=== PATIENT | female | born 1985 | race Caucasian/White ===

== ENCOUNTER 2020-04-30 07:00 | Outpatient (RCR) | payer OTHER, SELFPAY | END 2020-04-30 08:02 | disposition other institution (70) | LOC: HO.PT 07:00 | PROVIDERS: PCP Family Medicine; Visit Provider Family Medicine | DX: M25.561 Pain in right knee (principal) | CPT/HCPCS: 97110; 97112; 97140; 97162; 97530 ==

== ENCOUNTER 2020-06-21 12:17 | Outpatient (REF) | payer OTHER, SELFPAY | END 2020-06-21 12:18 | disposition home or self-care (01) | LOC: HO.LAB 12:17 | PROVIDERS: Visit Provider Internal Medicine | DX: Z20.822 Contact with and (suspected) exposure to COVID-19 (principal) | CPT/HCPCS: 36415; C9803; U0003 ==

== ENCOUNTER 2020-07-01 13:30 | Outpatient (REF) | payer OTHER, SELFPAY | END 2020-07-01 13:31 | disposition home or self-care (01) | LOC: HO.LAB 13:30 | PROVIDERS: Visit Provider Internal Medicine | DX: Z20.822 Contact with and (suspected) exposure to COVID-19 (principal) | CPT/HCPCS: 36415; C9803; U0003; U0005 ==

== ENCOUNTER 2021-04-12 15:02 | Emergency (ER) | payer OTHER, SELFPAY ==
[2021-04-12 15:41] VITALS: BP 129/78; PULSE 68; RESP 18; TEMP 37.3; O2SAT 98; BMI 28.7
[2021-04-12 16:37] LABS: COVID-19 Test Negative (Negative); IDNOW Serial# 08D9AD1C
--- NOTE | 2021-04-12 16:51 | ED_ITS ---
HPI - General Adult General Chief complaint: General Medical Stated complaint: Covid symptoms Time Seen by Provider: 04/12/21 16:51 History of Present Illness HPI narrative: Patient complains of mid nasal congestion and runny nose for several days and feels like she has a decreased sense of smell No cough no difficulty breathing Related Data Previous Rx's Medication Instructions Recorded oxymetazoline 0.05 % nasal spray 2 spray INTRANASAL Q12H PRN 5 Days 04/12/21 #15 ml Allergies Allergy/AdvReac Type Severity Reaction Status Date / Time No Known Allergies Allergy Unverified 02/08/20 17:37 [No Known Allergies*] Review of Systems Review of Systems: Positive for runny nose nasal congestion Negatives are no fever no chills no dizziness no weakness no headache no neck pain no sore throat no sputum no shortness of breath no chest pain no abdominal pain no nausea vomiting or diarrhea Yes all other systems are reviewed and are negative [facility] Past Medical History Source: nursing notes reviewed Social History Social History Advance Directives: No Advance Directives Information Provided: No Patient : No Physical Exam Vital Signs: Vital Signs: Last Vital Signs Temp 99.1 F 04/12/21 15:41 Pulse 68 04/12/21 15:41 Resp 18 04/12/21 15:41 BP 129/78 04/12/21 15:41 Pulse Ox 98 04/12/21 15:41 Body Mass Index 28.7 General appearance no acute distress The sinuses are nontender but congested The neck is supple Respiratory no distress Chest clear to auscultation bilateral Extremities full range of motion x4 Skin no rash Course Course Course Narrative: Well-appearing patient with negative COVID test is discharged Medical Decision Making Lab Data Labs: Lab Results 04/12/21 Range/Units 16:10 COVID-19 (GAGAN) Negative (Negative) COVID-19 Clin Com See Note Discharge Plan Discharge Clinical Impression: Acute viral syndrome Patient Disposition: Home, Self-Care Additional Instructions: COVID test was negative but with the loss of his sense of smell there is still a possibility you have COVID so would be a good idea to get retested for confirmation before returning to work You can use cldm-ovz-lsxcvun decongestant for about a week the nose spray is called oxymetazoline, it is the generic for Afrin 12 hour spray and you could use 2 or 3 sprays in each nostril every 12 hours as needed for congestion Return to ER any time any worse condition or any concerns Prescriptions: New oxymetazoline 0.05 % spray,non-aerosol 2 spray intranasal Q12H PRN (Reason: nasal congestion) 5 Days Qty: 15 RF: 0
== END 2021-04-12 17:09 | disposition home or self-care (01) ==
PROVIDERS: Emergency Provider Emergency Medicine Emergency Medical Services; PCP Family Medicine
DX: B34.9 Viral infection, unspecified (principal); Z20.822 Contact with and (suspected) exposure to COVID-19
CPT/HCPCS: 36415; 87635; 99283

== ENCOUNTER 2022-01-01 21:53 | Emergency (ER) | payer OTHER, SELFPAY ==
[2022-01-01 22:27] VITALS: BP 130/81; PULSE 90; RESP 16; TEMP 37.6; O2SAT 98; BMI 28.2
[2022-01-01 22:49] LABS: COVID-19 Test Positive (Negative); IDNOW Serial# 55D5AD1C
[2022-01-02] VITALS: BP 121/69; PULSE 76; RESP 18; TEMP 37.4; O2SAT 99
[2022-01-02 04:41] VITALS: BP 130/80; PULSE 66; RESP 16; O2SAT 100
[2022-01-02 07:56] VITALS: BP 132/83; PULSE 72; RESP 18; O2SAT 100
[2022-01-02] MEDS: Ibuprofen 400 MG TABLET PO (07:59)
[2022-01-02] MEDS: Acetaminophen 325 MG TABLET 975 MG PO (07:59)
--- NOTE | 2022-01-02 08:21 | ED_ITS ---
HPI - General Adult General Chief complaint: General Medical Stated complaint: +covid Time Seen by Provider: 01/02/22 07:27 Source: patient Mode of arrival: ambulatory History of Present Illness HPI narrative: 36-year-old female who [place] noted that he will were not wearing her mask but she was wearing her as and then when she got home she began having a couple of days of congestion then began began experiencing back discomfort and took a home COVID test last night which showed that it was positive. Patient states she has also had some abdominal discomfort with urinary pain and burning. Otherwise, she denies sore throat, cough, headache. Related Data Previous Rx's Medication Instructions Recorded oxymetazoline 0.05 % nasal spray 2 spray intranasal Q12H PRN nasal 04/12/21 congestion 5 days #15 mL nitrofurantoin 100 mg PO Q12H 5 days #10 caps 01/02/22 monohydrate/macrocrystals 100 mg capsule (Macrobid) Allergies Allergy/AdvReac Type Severity Reaction Status Date / Time No Known Allergies Allergy Unverified 02/08/20 17:37 [No Known Allergies*] Review of Systems Review of Systems: Pertinent positives and negatives as stated in HPI 10 point review of systems otherwise negative. PMFSH Past Medical History Source: nursing notes reviewed Medical History Diabetes Fibromyalgia PCOS (polycystic ovarian syndrome) Pituitary mass Social History Social History Patient Tobacco Use Status: Never used Tobacco Use of substances other than those prescribed or required for medical reasons: No Advance Directives: Yes Advance Directives Information Provided: Yes Advance Directives on File: No Physical Exam ED Vital Signs: Vital Signs - 24 hr 01/01/22 22:27 01/02/22 00:00 01/02/22 04:41 Temperature 99.6 F 99.4 F Pulse Rate 90 76 66 Respiratory Rate 16 18 16 Blood Pressure 130/81 121/69 130/80 Pulse Oximetry 98 99 100 Oxygen Delivery Method Room Air Room Air Room Air 01/02/22 07:56 Temperature Pulse Rate 72 Respiratory Rate 18 Blood Pressure 132/83 Pulse Oximetry 100 Oxygen Delivery Method Room Air BMI result Body Mass Index 28.2 VITAL SIGNS: Reviewed. GENERAL: Well developed, well nourished, in no acute distress. HEAD: Normocephalic/atraumatic EYES: PERRLA, EOMI EARS: Ext canals without abnormality, TMs non-bulging and non-erythematous NOSE: Nares patent bilateral OROPHARYNX: no oral lesions noted, posterior pharynx clear and non-erythematous without noted tonsillar enlargement/erythema/exudates NECK: Supple, no adenopathy LUNGS: Normal breath sounds. No adventitious sounds or accessory muscle use. SpO2<98> CARDIOVASCULAR: Regular rate and rhythm without noted murmurs ABDOMEN: Soft, mild tenderness on palpation but no rebound, non-distended with bowel sounds. MUSCULOSKELETAL: No tenderness, deformities, or effusions noted on gross inspection. EXTREMITIES: No cyanosis, clubbing or edema. SKIN: Inspection of the skin reveals no rashes NEUROLOGIC: Alert and oriented x 4. Strength and sensation to light touch were grossly intact x 4. Course Course Course Narrative: 36-year-old female with history and presentation most consistent with viral syndrome and on review of investigations she is noted to be COVID-19 positive and will evaluate for possibility of UTI but doubt intra-abdominal pathologies as patient is not febrile nor she tachypneic or tachycardic. Patient was provided with combination analgesics. Review of urinalysis demonstrates UTI, and on re-evaluation patient is had reduction in her pain level and will be discharged home in stable condition after receiving initial antibiotics here in the emergency room. Medical Decision Making Lab Data Labs: Lab Results 01/01/22 01/02/22 01/02/22 Range/Units 22:34 08:21 08:21 Urine Color STRAW Urine Appearance CLEAR Urine pH 6.0 (5.0-8.0) Ur Specific [place] <= 1.005 (1.005-1.025) Urine Protein NEG (NEG-TRACE) MG/DL Urine Glucose (UA) NEG (NEG) MG/DL Urine Ketones NEG (NEG) MG/DL Urine Blood 3+ H (NEG) Urine Nitrite NEG (NEG) Ur Leukocyte Esterase 2+ H (NEG) Urine RBC 10-14 H (0) /HPF Urine WBC 10-14 H (0-4) /HPF Ur Squamous Epith Cells 1+ /LPF Urine Bacteria NONE /LPF Urine Test NEGATIVE (NEGATIVE) COVID-19 (GAGAN) Positive A (Negative) COVID-19 Clin Com See Note Discharge Plan Discharge Clinical Impression: Viral syndrome, Lab test positive for detection of COVID-19 virus, UTI (urinary tract infection) Patient Disposition: Home, Self-Care Instructions: Urinary Tract Infection in Women (ED), Viral Syndrome (ED), COVID-19 (Coronavirus Disease 2019) (ED) Additional Instructions: 1. You have been diagnosed with COVID-19 today and will need to isolate for 5 days and then follow all [place] and Federal guidelines regarding COVID-19 positive and exposure to other people as well as return to work. 2. Recommend [id number] Tylenol/ibuprofen as needed for headaches, body aches, fevers greater than 100.4 and continue to stay well hydrated with plenty of water. 3. You have been diagnosed with the UTI, you have received initial antibiotics and the remaining course has been sent to your pharmacy. You should complete the entire course of antibiotics 4. Follow-up with your primary care provider in the next few days via telemedi cine appointment. Return to the ER for worsening symptoms. Prescriptions: New nitrofurantoin monohyd/m-cryst [Macrobid] 100 mg capsule 100 mg PO Q12H 5 Days Qty: 10 0RF Rx Instructions: must administer with a meal/food No Action oxymetazoline 0.05 % spray,non-aerosol 2 spray intranasal Q12H PRN (Reason: nasal congestion) 5 Days Qty: 15 0RF Stand Alone Forms: Work/School Release
[2022-01-02 08:38] LABS: Appearance Urine CLEAR; Color Urine STRAW; Glucose Urine UA NEG (NEG); Leukocyte Esterase Urine 2+ (NEG); Nitrite Urine NEG (NEG); Specific Gravity - Urine <= 1.005 (1.005-1.025); UACC Culture Trigger YES; Urine Blood 3+ (NEG); Urine Ketones NEG (NEG); Urine Protein NEG (NEG-TRACE)
[2022-01-02 08:42] LABS: UPreg QC Valid YES; Urine Pregnancy NEGATIVE (NEGATIVE)
[2022-01-02 08:55] LABS: Squamous Epithelial Cell Urine 1+ /LPF
[2022-01-02] MEDS: Nitrofurantoin Monohyd/M-Cryst 100 MG CAPSULE PO (09:25)
[2022-01-02 09:33] LABS: Glucose, Whole Blood 109 mg/dL (60-115)
== END 2022-01-02 09:32 | disposition home or self-care (01) ==
PROVIDERS: Emergency Provider Student in an Organized Health Care Education/Training Program
DX: U07.1 COVID-19 (principal); B34.9 Viral infection, unspecified; N39.0 Urinary tract infection, site not specified; B95.7 Other staphylococcus as the cause of diseases classified elsewhere; E11.9 Type 2 diabetes mellitus without complications
CPT/HCPCS: 81001; 81025; 82947; 87086; 87088; 87186; 87635; 99283; 99284

== ENCOUNTER 2023-04-08 08:58 | Outpatient (REF) | payer OTHER, SELFPAY ==
[2023-04-08 11:23] LABS: Estimated Average Glucose 171 mg/dL; Hemoglobin A1c % 7.6 % (<6.0)
[2023-04-08 11:39] LABS: Alanine Aminotransferase 18 U/L (0-31); Alkaline Phosphatase 85 U/L (39-117); Anion Gap 11 (12-20); Aspartate Amino Transferase 17 U/L (5-31); Bilirubin Direct 0.2 mg/dL (0.0-0.5); Bilirubin Total 0.7 mg/dL (0.0-1.0); Blood Urea Nitrogen 7 mg/dL (9-16); Calcium 8.8 mg/dL (8.4-10.2); Carbon Dioxide 24 mmol/L (22-29); Chloride 106 mmol/L (96-108); Cholesterol 143 mg/dL (<200); Estimated Glomerular Filt Rate > 60; Glucose Random 198 mg/dL (60-115); HDL Cholesterol 40 mg/dL (>40); LDL Cholesterol Calculated 80 mg/dL (<100); Sodium 137 mmol/L (135-145); Total Protein 7.3 g/dL (6.5-8.0); Triglycerides 115 mg/dL (<150)
[2023-04-08 11:55] LABS: ~HepC Num1 2.62 S/CO (0.00-0.79); ~Hepatitis C Antibody Reactive (Nonreactive)
[2023-04-08 11:59] LABS: Vitamin D 25-OH Total 18.7 ng/mL (>30)
[2023-04-08 12:04] LABS: Microalbum/Creatinine Ratio Ur 5.6 ug/mg cr (<30)
[2023-04-12 12:38] LABS: HCV Log PCR <1.18 NOT DETECTED Log IU/mL (NOT DETECTED); HepC Viral Load <15 NOT DETECTED IU/mL (NOT DETECTED)
== END 2023-04-08 08:59 | disposition home or self-care (01) ==
LOC: HO.HHCL 08:58
PROVIDERS: Visit Provider Family Medicine
DX: E11.9 Type 2 diabetes mellitus without complications (principal); E55.9 Vitamin D deficiency, unspecified; Z11.59 Encounter for screening for other viral diseases
CPT/HCPCS: 36415; 80048; 80061; 80076; 82043; 82306; 82570; 83036; 86803; 87522

== ENCOUNTER 2023-04-09 12:38 | Outpatient (REF) | payer OTHER, SELFPAY ==
[2023-04-09 16:21] LABS: CT PCR NOT DETECTED (Not Detect.); NG PCR NOT DETECTED (Not Detect.)
[2023-04-10 03:36] LABS: HIV AB/AG Nonreactive (Nonreactive); HIV Num 1 0.05 S/CO (0.00-0.99)
[2023-04-12 12:38] LABS: HCV Log PCR <1.18 NOT DETECTED Log IU/mL (NOT DETECTED); HepC Viral Load <15 NOT DETECTED IU/mL (NOT DETECTED)
[2023-04-17 08:03] LABS: HPV 16 RNA NOT DETECTED (NOT DETECTED); HPV mRNA E6/E7 rflx Detected (Not Detected)
== END 2023-04-09 12:39 | disposition home or self-care (01) ==
LOC: HO.HHCL 12:38
PROVIDERS: Visit Provider Family Medicine
DX: Z12.4 Encounter for screening for malignant neoplasm of cervix (principal); Z11.51 Encounter for screening for human papillomavirus (HPV); R76.8 Other specified abnormal immunological findings in serum; Z20.2 Contact with and (suspected) exposure to infections with a predominantly sexual mode of transmission
CPT/HCPCS: 0353U; 36415; 87389; 87522; 87624; 87625; 88142

== ENCOUNTER 2023-06-07 07:29 | Outpatient (REF) | payer OTHER, SELFPAY | END 2023-06-07 07:30 | disposition home or self-care (01) | LOC: HO.LAB 07:29 | PROVIDERS: Visit Provider Obstetrics & Gynecology | DX: R87.810 Cervical high risk human papillomavirus (HPV) DNA test positive (principal); R87.610 Atypical squamous cells of undetermined significance on cytologic smear of cervix (ASC-US) | CPT/HCPCS: 57454; 81025; 88305 ==

== ENCOUNTER 2023-06-07 07:29 | Outpatient (AMB) | payer OTHER, SELFPAY ==
--- NOTE | 2023-06-07 07:50 | A.OFFVIS_ITS ---
Intake Vital Signs 06/07/23 07:53 Height 5 ft 6 in BP 112/70 Intake Visit Reasons: Ascus,HPV +/PCP Referral Application Integration Specialist: Application Integration Specialist Present (Shannan) Allergies No Known Allergies [No Known Allergies*] Allergy (Verified 06/07/23 07:50) Is last menstrual period known: Yes Last menstrual period: 05/29/23 HPI HPI Comments History of Present Illness Details Presenting referred from the patient's PCP regarding abnormal Pap smear showing ascus/HPV E6/E7 positive [facility] Medical History Pituitary mass PCOS (polycystic ovarian syndrome) Fibromyalgia Diabetes Social History Patient Tobacco Use Status: Never used Tobacco Female Reproductive History Menstrual Date of last menstrual period: 05/29/23 Review of Systems Const All systems reviewed & are unremarkable except as noted in HPI and below Physical Exam Vital Signs: Last Vital Signs BP 112/70 06/07/23 07:53 General: Yes no CVA tenderness External Female Exam: normal external appearance and normal appearance of the urethra Speculum Exam - Vagina: normal appearance of the vagina, normal palpation, no lesions and no masses Speculum Exam - Cervix: normal appearance of the cervix, normal palpation, no lesions, no masses and nontender Bimanual exam- vagina & uterus: normal bimanual exam, normal palpation, uterine size normal, normal palpation, uterine shape normal, No Cervical tenderness present and non-tender Bimanual Exam- Adnexa, other: normal adnexae Back/Spine/Pelvis Back: no CVA tenderness Office Procedures Colposcopy Before the procedure was started discussed with the patient the procedure, alternatives & all the risks associated with the procedure (bleeding, infection, injury to vagina, bladder, vessels, possible need for transfusion with all its risks) then patient signed the consent Pap smear = ascus/HPV positive Urine test done in the office was negative Speculum inserted, acetic acid used Colposcopy done Transformation zone seen, acetowhite lesions identified at 11+2+3+5 o?clock, cervical biopsies taken from 11+2+3+5 o?clock, ECC done afterwards. Vaginoscopy of the upper vagina showed no evidence of any aceto-white lesions Monsel solution used for hemostasis. The patient tolerated well . At the end the patient was instructed to call if temp>100.4, abdominal pain, n/v, bleeding; The patient was given the following instructions: nothing per vagina, no intercourse or bath tub use. All questions answered the patient verbalized understanding. Instructed the patient to make an appointment in 2 weeks for follow-up This note was generated with a voice recognition program. Some errors may have been overlooked during the review of this note. Sometimes these errors may affect the content or meaning of a given sentence. 29135-Meapxtzqi of cervix including upper vagina with biopsy and ECC Procedure code (CPT) selection complete Results AMB Test Urine AMB Test Urine Negative Last Edit by EFFIE Gonzalez on 06/07/23 07:55 Results Reviewed Results Reviewed: Laboratory Last Values Tst Clinic Negative 06/07/23 07:55 Assessment & Plan Assessment & Plan (1) ASCUS with positive high risk HPV cervical: Code(s): R87.610 - Atypical squamous cells of undetermined significance on cytologic smear of cervix (ASC-US); R87.810 - Cervical high risk human papillomavirus (HPV) DNA test positive Plan: Discussed with the patient the result of her abnormal pap, its significance, risk of progression, persistence, and regression if untreated. the false positive/negative rate being a screening test, the indication for diagnostic test -colposcopy, biopsy, endocervical curettage. Colpo/biopsy/ ECC done, see procedure note. The patient verbalized understanding and agreed with the plan, all questions answered. Orders: Orders AMB HCG Urine Test Today Z32.02 - Encounter for test, result negative AMB Colposcopy Today R87.610 - Atypical squamous cells of undetermined significance on cytologic smear of cervix (ASC-US), R87.810 - Cervical high risk human papillomavirus (HPV) DNA test positive Coding Level of Care Code Procedure Only Diagnoses ASCUS with positive high risk HPV cervical R87.610; R87.810 CPT Codes Colposcopy - CPT: 95038-Rwbmcmgdg of cervix including upper vagina with biopsy and ECC ([id number])
[2023-06-07 07:53] VITALS: BP 112/70
== END 2023-06-07 08:23 | disposition home or self-care (01) ==
PROVIDERS: Visit Provider Obstetrics & Gynecology
DX: R87.610 Atypical squamous cells of undetermined significance on cytologic smear of cervix (ASC-US) (principal); R87.810 Cervical high risk human papillomavirus (HPV) DNA test positive; Z32.02 Encounter for pregnancy test, result negative
CPT/HCPCS: 57454

== ENCOUNTER 2023-06-22 07:48 | Outpatient (AMB) | payer OTHER, SELFPAY ==
--- NOTE | 2023-06-22 07:53 | MHC.OFFVIS ---
Intake Vital Signs 06/22/23 07:56 Height 5 ft 6 in Weight 196 lb BMI 31.6 BP 120/78 Intake Visit Reasons: Colpo Results Mold Stamper And Repairer Required: Yes Mold Stamper And Repairer Language: Server Administrator Name: Lucretia CHOU Information Interpreted: non-clinical & clinical Accompanied by: Self / Same As Patient Allergies No Known Allergies [No Known Allergies*] Allergy (Verified 06/22/23 07:57) HPI HPI Comments History of Present Illness Details Presenting post colpo for follow-up. The patient is doing well with no complaints. The pathology showed the following: A. Cervix, 2 o'clock, biopsy: Mildly inflamed squamous mucosa with reactive changes; no endocervical epithelium identified. B. Cervix, 3 o'clock, biopsy: Mildly inflamed squamous and endocervical mucosa with reactive changes; mucoinflammatory material. C. Cervix, 5 o'clock, biopsy: Mildly inflamed squamous mucosa with reactive changes; no endocervical epithelium identified. D. Cervix, 11 o'clock, biopsy: Inflamed cervical transformation zone mucosa with reactive changes. E. Endocervix, curettage: Superficial fragments of endocervical epithelium within normal limits PFSH Medical History Pituitary mass PCOS (polycystic ovarian syndrome) Fibromyalgia Diabetes Social History Patient Tobacco Use Status: Never used Tobacco Review of Systems Const All systems reviewed & are unremarkable except as noted in HPI and below Reports as per HPI and Reports no additional complaints GI Reports no additional complaints Reports no additional complaints Assessment & Plan Assessment & Plan (1) ASCUS with positive high risk HPV cervical: Code(s): R87.610 - Atypical squamous cells of undetermined significance on cytologic smear of cervix (ASC-US); R87.810 - Cervical high risk human papillomavirus (HPV) DNA test positive Plan: Discussed with the patient the pathology results of the colposcopy biopsies & endocervical curettage ( negative). Discussed with the patient the sensitivity specificity, positive and negative predictive value in detecting cervical cancer in addition discussed the regression, persistence and progression rates. Recommended co-testing in 12 months, if cytology and or HPV are abnormal will proceed was colposcopy biopsy and endocervical curettage. Instructions given to the patient to schedule a co test appointment in 1 year. All questions answered the patient verbalized understanding. Coding Level of Care Code Est Pt Level 3 (08781) Diagnoses ASCUS with positive high risk HPV cervical R87.610; R87.810
[2023-06-22 07:56] VITALS: BP 120/78; BMI 31.6
== END 2023-06-22 08:41 | disposition home or self-care (01) ==
PROVIDERS: Visit Provider Obstetrics & Gynecology
DX: R87.610 Atypical squamous cells of undetermined significance on cytologic smear of cervix (ASC-US) (principal); R87.810 Cervical high risk human papillomavirus (HPV) DNA test positive
CPT/HCPCS: 99213

== ENCOUNTER → 2023-06-22 07:48 | Outpatient (BNVA) | payer OTHER, SELFPAY | PROVIDERS: Visit Provider Obstetrics & Gynecology ==

== ENCOUNTER 2023-07-23 08:06 | Outpatient (REF) | payer OTHER, SELFPAY ==
--- NOTE | ~2023-07-23 | XR_ITS ---
EXAMINATION: XR KNEE, LEFT CLINICAL INFORMATION: Bilateral knee pain. COMPARISON: None. TECHNIQUE: Three views of the left knee. FINDINGS: No fracture or joint effusion appreciated. Alignment is anatomic. Joint spaces appear maintained. No abnormal soft tissue calcification. XR/XR knee LT 3V IMPRESSION: Unremarkable plain film examination of the left knee.
--- NOTE | ~2023-07-23 | XR_ITS ---
EXAMINATION: XR KNEE, RIGHT CLINICAL INFORMATION: Bilateral knee pain. COMPARISON: February 02, 2020 TECHNIQUE: Three views of the right knee. FINDINGS: No fracture or joint effusion appreciated. Alignment is anatomic. Joint spaces appear maintained. No abnormal soft tissue calcification. XR/XR knee RT 3V IMPRESSION: Unremarkable plain film examination of the right knee.
== END 2023-07-23 08:07 | disposition home or self-care (01) ==
LOC: HO.XRAY 08:06
PROVIDERS: PCP Family Medicine; Visit Provider Family Medicine
DX: M25.561 Pain in right knee (principal); M25.562 Pain in left knee; G89.29 Other chronic pain
CPT/HCPCS: 73562

== ENCOUNTER 2023-08-18 07:00 | Outpatient (RCR) | payer OTHER, SELFPAY | END 2023-09-24 07:55 | disposition home or self-care (01) | LOC: HO.PT 07:00 | PROVIDERS: PCP Family Medicine; Visit Provider Family Medicine | DX: M25.561 Pain in right knee (principal); M25.562 Pain in left knee | CPT/HCPCS: 97110; 97162; 97530 ==

== ENCOUNTER 2024-06-09 09:02 | Outpatient (REF) | payer OTHER, SELFPAY ==
[2024-06-09 11:33] LABS: MANUAL DIFF FLAG NO
[2024-06-09 11:39] LABS: Basophils Percent Auto 0.4 % (0-2); Eosinophils Absolute Auto 0.1 X10*3/uL (0.0-0.4); Eosinophils Percent Auto 1.2 % (0-4); Hematocrit 38.2 % (37.0-47.0); Hemoglobin 12.5 g/dl (12.0-16.0); Imm Gran Abs Auto 0.03 X10*3/uL (0.00-0.03); Imm Gran Pct Auto 0.3 % (0.0-0.4); Lymphocytes Absolute Auto 1.9 X10*3/uL (1.2-4.9); Lymphocytes Percent Auto 21.1 % (20-40); Mean Corpuscular HGB Conc 32.7 g/dl (31.0-35.0); Mean Corpuscular Hemoglobin 27.3 pg (27.0-33.0); Mean Corpuscular Volume 83.4 fL (80.0-98.0); Mean Platelet Volume 10.4 fL (9.4-12.3); Monocytes Absolute Auto 0.6 X10*3/uL (0.1-1.2); Monocytes Percent Auto 6.4 % (2-11); Neutrophils Absolute Auto 6.3 x10*3/uL (2.0-8.3); Neutrophils Percent Auto 70.6 % (45-73); Platelet Count 316 X10*3/uL (160-400); Red Blood Count 4.58 X10*6/uL (4.20-5.50); Red Cell Distribution Width 12.7 % (11.0-16.0); White Blood Count 8.9 X10*3/uL (4.8-10.8)
[2024-06-09 11:48] LABS: Estimated Average Glucose 131 mg/dL; Hemoglobin A1C 146.1457 umol/L; Hemoglobin A1c % 6.2 % (<6.0); Total Hemoglobin (HGBA1C) 3282.2372 umol/L
[2024-06-09 11:56] LABS: Creatinine Urine 130.39 mg/dL; Microalbumin Urine < 5.0 mg/L
[2024-06-09 12:14] LABS: Alanine Aminotransferase 16 U/L (0-31); Alkaline Phosphatase 88 U/L (39-117); Anion Gap 9 (12-20); Aspartate Amino Transferase 17 U/L (5-31); Bilirubin Direct 0.2 mg/dL (0.0-0.5); Bilirubin Total 0.7 mg/dL (0.0-1.0); Blood Urea Nitrogen 12 mg/dL (9-16); Calcium 8.9 mg/dL (8.4-10.2); Carbon Dioxide 25 mmol/L (22-29); Chloride 107 mmol/L (96-108); Cholesterol 133 mg/dL (<200); Estimated Glomerular Filt Rate > 60; Glucose Random 148 mg/dL (60-115); HDL Cholesterol 38 mg/dL (>40); LDL Cholesterol Calculated 76 mg/dL (<100); Potassium 3.8 mmol/L (3.3-5.1); Sodium 137 mmol/L (135-145); Total Protein 7.3 g/dL (6.5-8.0); Triglycerides 98 mg/dL (<150)
== END 2024-06-09 09:03 | disposition home or self-care (01) ==
LOC: HO.HHCL 09:02
PROVIDERS: Visit Provider Family Medicine
DX: E11.9 Type 2 diabetes mellitus without complications (principal)
CPT/HCPCS: 36415; 80048; 80061; 80076; 82570; 83036; 85025

== ENCOUNTER 2024-06-13 08:00 | Outpatient (AMB) | payer OTHER, SELFPAY ==
--- NOTE | 2024-06-13 08:04 | MHC.OFFVIS ---
Vital Signs 06/13/24 08:07 Height 5 ft 6 in Weight 186 lb BMI 30.0 Intake Visit Reasons: Bilateral knee pains and giving way Intake Note: Bren is a 39 year old female who presents with complaints of progressively worsening bilateral knee pains and giving way, right greater than left. She describes her pains as sharp in nature. Most of the pain is along the anterior and medial aspects of her right knee. She states that her right knee will give out several times per day. Her symptoms have gotten worse over the last 2 years in spite of continued non operative treatments. She has been to formal physical therapy which gave her no relief. She has also tried Tylenol and anti-inflammatory medicines which gave her only mild relief. She has failed the last 6 weeks of conservative treatment which has included physical therapy, Tylenol, and anti-inflammatory medicines. Javascript Developer Required: Yes Javascript Developer Language: Manager Sign Name: GregoryEFFIE rodarte/OLIMPIA Allergies No Known Allergies [No Known Allergies*] Allergy (Verified 06/13/24 08:07) Medication List - Last Reconciled 06/13/24 by Timoteo Ramirez MD cabergoline 0.5 mg PO 2XW empagliflozin (Jardiance) 10 mg PO DAILY glipizide ER 5 mg PO DAILY loratadine 10 mg PO QAM [facility] Medical History (Updated 06/13/24 @ 08:19 by Timoteo Ramirez MD) Chronic back pain Pituitary mass PCOS (polycystic ovarian syndrome) Fibromyalgia Diabetes Social History Patient Tobacco Use Status: Never used Tobacco Physical Exam Vital Signs: BMI result Body Mass Index 30.0 Const Other: Well-nourished well-developed very friendly female awake alert and oriented x3 in no acute distress Extrem Other: Bilateral lower extremity examination shows good capillary refill, no skin lesions noted, normal sensation light touch Bilateral knee examination shows minimal effusions, minimal crepitus with range of motion, tenderness along her medial joint lines, positive Estefani's test, no instability Results Reviewed Results Reviewed: Standing full weight-bearing x-rays of the patient's bilateral knee show mild diffuse joint space narrowing, no acute bony abnormalities Assessment & Plan Assessment & Plan (1) Tear of medial meniscus of right knee: Code(s): S83.241A - Other tear of medial meniscus, current injury, right knee, initial encounter Category: Medical Plan Ms. Milli Ferrera presents with progressively worsening right knee pain and mechanical symptoms most likely due to a medial meniscus tear. Thus, I will send the patient for an MRI of her right knee for further evaluation. I will see her back once the MRI is completed to discuss the findings and treatment options. Feel free to call me at any time should questions regarding her orthopedic management arise. Thank you very much for asking me to see this very friendly patient. I spent 20 minutes in reviewing the patient's records and imaging studies, seeing the patient and documenting in the medical record. Orders: Orders MR knee RT wo con Today S83.241A - Other tear of medial meniscus, current injury, right knee, initial encounter Coding Level of Care Code New Pt Level 3 (28105) Complex EM visit Add On G2211 Diagnoses Tear of medial meniscus of right knee S83.241A
== END 2024-06-13 08:17 | disposition home or self-care (01) ==
PROVIDERS: PCP Family Medicine; Visit Provider Orthopaedic Surgery
DX: S83.241A Other tear of medial meniscus, current injury, right knee, initial encounter (principal)
CPT/HCPCS: 99203

== ENCOUNTER 2024-06-27 07:33 | Outpatient (REF) | payer OTHER, SELFPAY ==
--- OUTSIDE RECORDS SUMMARY | 2024-06-27 08:11 | XMS_ITS | Encounter Summary ---
Author Organization [employer] [facility] Address [address] [place] [address] [address] [place] [address] Care Team Providers Care Physical Therapist Name Role Phone Heidy Daley MD Primary Care Provider [phone]- [phone] Timoteo Ramirez MD Unavailable Encounter Details Date Type Department Care Team (Latest Contact Info) Description 02/07/2019 Abstract C CONVERSIONS Dental, Provider, DDS Social History Tobacco Use Types Packs/Day Years Used Date Smoking Tobacco: Never Assessed Comments Unknown Sex and Gender Information Value Date Recorded Sex Assigned at Female 03/23/2022 10:20 AM EDT Legal Sex Female 10:20 AM EDT Gender Identity Female 03/23/2022 10:20 AM EDT Sexual Orientation Straight 03/23/2022 10 :20 AM EDT documented as of this encounter Plan of Treatment Not on file documented as of this encounter Visit Diagnoses Not on filedocumented in this encounter Care Teams Physical Therapist Relationship Specialty Start Date End Date Heidy Daley MD [address] [place] [id number] PCP - General Family Medicine 05/24/18 Timoteo Ramirez MD [address] [place] [id number] Orthopaedic Surgery 06/13/24 Heidy Conklin, JaceyD Endocrinology 04/19/24 documented as of this encounter
--- OUTSIDE RECORDS SUMMARY | 2024-06-27 08:11 | XMS_ITS | Encounter Summary ---
Author Organization [employer] Address [address] [place] [address] Care Team Providers Care Senior Account Clerk Name Role Phone Heidy Daley MD Primary Care Provider [phone]- [phone] Timoteo Ramirez MD Unavailable Reason for Visit * Reason Onset Date Comments Referral 08/18/2022 Encounter Details Date Type Department Care Team (Late st Contact Info) Description 08/18/2022 Telephone [facility] [address] [place] [address] Heidy Daley MD [address] [place] [address] Referral Social History Tobacco Use Types Packs/Day Years Used Date Smoking Tobacco: Never Assessed Comments Unknown Sex and Gender Information Value Date Recorded Sex Assigned at Female 03/23/2022 10:20 AM EDT Legal Sex Female 10:20 AM EDT Gender Identity Female 03/23/2022 10:20 AM EDT Sexual Orientation Straight 03/23/2022 10 :20 AM EDT documented as of this encounter Miscellaneous Notes * Telephone Encounter - Keith Victor - 08/18/2022 4:05 PM EDT Tc from pt requesting a referral Endocrinology. Pt states that she was referred to [facility] and arons not had an appt with them for months now. Please contact pt at [phone] documented in this encounter Plan of Treatment Not on file documented as of this encounter Visit Diagnoses Not on filedocumented in this encounter Care Teams Senior Account Clerk Relationship Specialty Start Date End Date [place], [place] Heidy [address] [place] [id number] PCP - General Family Medicine 05/24/18 Timoteo Ramirez MD [address] [place] [address] [place] [id number] Orthopaedic Surgery 06/13/24 Heidy Conklin, PharmD Endocrinology 04/19/24 documented as of this encounter
--- OUTSIDE RECORDS SUMMARY | 2024-06-27 08:11 | XMS_ITS | Encounter Summary ---
Author Organization [employer] Address [address] [place] [address] Care Team Providers Care Capacitor Tester Name Role Phone Heidy Daley MD Primary Care Provider [phone]- [phone] Timoteo Ramirez MD Unavailable Encounter Details Date Type Department Care Team ([facility] st Contact Info) Description 04/22/2023 Orders Only [facility] MEDICINE [address] [place], [place] [id number] Heidy Daley MD [address] [place] [address] Atypical squamous cells of undetermined significance on cytologic smear of cervix (ASC-US) (Primary Dx) Social History Tobacco Use Types Packs/Day Years Used Date Smoking Tobacco: Never Smokeless Tobacco: Never Alcohol Use Standard Drinks/Week Comments Never 0 (1 standard drink = 0.6 oz pur e alcohol) Depression Answer Date Recorded Patient Health Questionnaire-9 Score 3 04/09/2023 Patient Health Questionnaire-9 Score 3 04/09/2023 Last PHQ-9: Questionnaire Data Not on file 1 06/09/2022 Housing Stability Answer Date Recorded What is your housing situation today? I have farhan cevallos 04/09/[address] you li ve. Do you have problems with any of the following? None of the above 04/09/2023 Food Insecurity Answer Date Recorded Within the past 12 months, y ou worried that your food would run out before you got money to buy more: Never True 04/09/2023 Within the past 12 months,th e food you bought just didn't last and you didn't have enough money to get more: Never True Transportation Answer Date Recorded In the past 12 months, has l ack of transportation kept you from medical appts, meetings, work or from getting things needed for daily living? No 04/09/2023 Utilities Answer Date Recorded In the past 12 months, has t he electric, gas, oil or water company threatened to shut off services in your home? No 04/09/2023 Depression Answer Date Recorded Patient Health Questionnaire-2 Score 0 04/09/2023 Comments Unknown Sex and Gender Information Value Date Recorded Sex Assigned at Female 03/23/2022 10:20 AM EDT Legal Sex Female 10:20 AM EDT Gender Identity Female 03/23/2022 10:20 AM EDT Sexual Orientation Straight 03/23/2022 10 :20 AM EDT documented as of this encounter Plan of Treatment Not on file documented as of this encounter Visit Diagnoses Diagnosis Atypical squamous cells of undetermined significance on cytologic smear of cervix (ASC-US)- Primary documented in this encounter Additional Health Concerns Assessment Noted Time PHQ-9 Depression Total Score: 3 04/09/20 23 10:33 AM EST documented as of this encounter Care Teams Capacitor Tester Relationship Specialty Start Date End Date Heidy Daley MD [address] [place] [id number] PCP - General Family Medicine 05/24/18 Timoteo Ramirez MD [address] [place] [address] [address] [place] [address] Orthopaedic Surgery 06/13/24 Heidy Conklin PharmD Endocrinology 04/19/24 documented as of this encounter
--- OUTSIDE RECORDS SUMMARY | 2024-06-27 08:11 | XMS_ITS | Clinical Summary ---
Author Organization [employer] Address [address] [place] [address] Care Team Providers Care Design Assistant Name Role Phone Heidy Daley MD Primary Care Provider [phone] Timoteo Ramirez MD Unavailable Allergies No known active allergies Medications * This document contains information received from the source organization and may not represent a complete record from that organization. loratadine (Claritin) 10 MG tabletIndications :Dry skin Take 1 tablet (10 mg) by mouth in the morning. 30 tablet 3 Active empagliflozin (Jardiance) 10 MGIndications:Terri betes mellitus without complication (CMS/HCC) Take 10 mg by mouth. 4 Active omega-3 1000 MG capsule capsuleIndication s:Dyslipidemia Take 1 capsule (1,000 mg) by mouth 2 times daily. 60 capsule 11 4 Active glipiZIDE (Glucotrol) 10 MG tabletIndications :Diabetes mellitus without complication (CMS/HCC) Take 10 mg by mouth before breakfast and before evening meal. Active Calcium Carbonate-Vitamin D (Oyster Shell Calcium/D) 500-5 MG-MCG tabletIndications :Dietary counseling 1 tab po bid 60 tablet 3 4 Active cabergoline (Dostinex) 0.5 MG tabletIndications :Pituitary adenoma (CMS/HCC) Take 0.25 mg by mouth 2 (two) times a week. Active Active Problems Problem Noted Date Diagnosed Date Dyslipidemia 04/28/2024 Chronic pain of both knees 04/28/2024 Overview (06/13/2024): Unremarkable XRs in July 2023 -Seen by Timoteo Ramirez MD, orthopedist 06/09/24 most likely due to a medial meniscus tear. Thus, I will send the patient for an MRI of her right knee for further evaluation. I will see her back once the MRI is completed to discuss the findings and treatment options. Assessment & Plan (04/28/2024 10:14 PM EST): Unremarkable XRs in July 2023 -referred to Orthopedics 04/28/24 Abnormal Pap smear of cervix 04/22/2023 Overview (04/22/2023): Pap 03/2023 ASCUS, HPV positive, referral to Astronomy Professor placed 04/22/23 Assessment & Plan (04/28/2024 10:11 PM EST): Pap 03/2023 ASCUS, HPV positive, referral to Astronomy Professor placed 04/22/23 Hepatitis C antibody test positive 04/09/2023 Overview (04/27/2023): -positive on routine screening 03/2023, viral load negative Refusal of blood transfusion s as patient is Yarsanism 2023 Other specified health status 2023 Overview (04/28/2024): -next physical exam due after 04/28/2025 -eye care facilitated by Dr. Hal Leary of [facility], encouraged to follow up 04/09/2023 -dental home is [facility] -health care proxy Assessment & Plan (04/28/2024 10:11 PM EST): -next physical exam due after 04/28/2025 -eye care facilitated by Dr. Hal Leary of [facility], encouraged to follow up 04/09/2023 -dental home is [facility] -health care proxy Assessment & Plan (04/09/2023 10:14 AM EST): -next physical exam due after 04/09/2024 -eye care facilitated by Dr. Hal Leary of [facility], encouraged to follow up 04/09/2023 -dental home is Insomnia 08/19/2022 Lower urinary tract symptoms 08/19/2022 Fibromyalgia 08/19/2022 Pain in female pelvis 08/19/2022 Vitamin D deficiency 10/22/2021 Pituitary adenoma 10/22/2021 Overview (04/06/2024): 09/2020 Prolactin 37.5 -Followed by Endocrinology at [facility] . Note from 04/03/24 reveiwed Assessment & Plan (04/28/2024 10:12 PM EST): 09/2020 Prolactin 37.5 -Followed by Endocrinology at [facility] . Note from 04/03/24 reveiwed Assessment & Plan (04/09/2023 9:01 AM EST): 09/2020 Prolactin 37.5 -Followed by Endocrinology. Diabetes mellitus without complication 8 Overview (06/20/2024): Diabetes is not controlled. - Diagnosed 06/2017 based on fasting blood sugars of 147 (06/30/16) and 131 (06/18/17). -Previously followed by [facility] endocrinology but referred back to PCP 05/2024 due to well controlled Lab Results Component Value Date HGBA1C 6.2 (H) 06/09/2024 HGBA1C 7.7 (A) 02/29/2024 HGBA1C 7.8 (A) 04/09/2023 Lab Results Component Value Date CREATININE 0.75 06/09/2024 EGFR >60 06/09/2024 MICROALBCREU TNP 06/09/2024 MICROALBCREU 5.6 04/08/2023 LDLCHOLCAL 76 06/09/2024 -Kennedy/Arb: none -Statin therapy: none -Diabetic eye exam: followed by Dr. Hal Leary of [facility] -Diabetic foot exam: -Continue lifestyle modifications -note from [facility] endocrinology 04/03/24 reveiwed Assessment & Plan (04/28/2024 10:12 PM EST): Diabetes is not controlled. - Diagnosed 06/2017 based on fasting blood sugars of 147 (06/30/16) and 131 (06/18/17). -Followed by [facility] endocrinology but off meds due to they asked her to check what is covered by insurance. She will contact them regarding elevated A1c. Lab Results Component Value Date HGBA1C 7.6 (H) 04/08/2023 HGBA1C 6.9 (A) 09/16/2022 HGBA1C 6.8 (H) 02/01/2020 HGBA1C 6.8 (H) 02/01/2020 Lab Results Component Value Date CREATININE 0.79 04/08/2023 EGFR >60 04/08/2023 MICROALBCREU 5.6 04/08/2023 LDLCHOLCAL 80 04/08/2023 -Kennedy/Arb: none -Statin therapy: none -Diabetic eye exam: followed by Dr. Hal Leary of [facility] -Diabetic foot exam: -Continue lifestyle modifications -note from [facility] endocrinology 04/03/24 reveiwed Assessment & Plan (04/09/2023 11:52 AM EST): Diabetes is not controlled. - Diagnosed 06/2017 based on fasting blood sugars of 147 (06/30/16) and 131 (06/18/17). -Followed by [facility] endocrinology but off meds due to they asked her to check what is covered by insurance. She will contact them regarding elevated A1c. Lab Results Component Value Date HGBA1C 7.6 (H) 04/08/2023 HGBA1C 6.9 (A) 09/16/2022 HGBA1C 6.8 (H) 02/01/2020 HGBA1C 6.8 (H) 02/01/2020 -No results found for: POCA1C - Lab Results Component Value Date MICROALBUR 23.0 04/08/2023 CREATININE 0.79 04/08/2023 -Kennedy/Arb: none -Statin therapy: none -Diabetic eye exam: followed by Dr. Hal Leary of [facility] -Diabetic foot exam: -Continue lifestyle modifications Eczema 01/25/2013 PCOS (polycystic ovarian syndrome) 01/25/2013 Overview (2023): She has hirsutism hair on her chin, she wants to try natural products so she will try inositol, berberine. She declines spironolactone. I gave her info for [facility] for laser or electrolysis. Her menses are every month. Assessment & Plan (04/28/2024 10:11 PM EST): She has hirsutism hair on her chin, she wants to try natural products so she will try inositol, berberine. She declines spironolactone. I gave her info for [facility] for laser or electrolysis. Her menses are every month. Assessment & Plan (04/09/2023 9:01 AM EST): She has hirsutism hair on her chin, she wants to try natural products so she will try inositol, berberine. She declines spironolactone. I gave her info for [facility] for laser or electrolysis. Her menses are every month. Resolved Problems Problem Noted Date Diagnosed Date Resolved Date Symptomatic irreversible pulpitis 07/08/2023 04/06/2024 Dental caries 05/04/2023 04/06/2024 Dental calculus 05/04/2023 04/06/2024 Physical exam 04/09/2023 06/13/2024 Overview (04/09/2023): -Normal growth and development. -Anticipatory guidance discussed. -Preventative care / harm reduction discussed. Assessment & Plan (04/09/2023 9:02 AM EST): -Normal growth and development. -Anticipatory guidance discussed. -Preventative care / harm reduction discussed. Chronic constipation 10/22/2021 024 Encounters * This document contains information received from the source organization and may not represent a complete record from that organization. Date Type Department Care Team Description 06/16/[address] [phone] Heidy Daley MD Appointment Request 05/22/2024 Telephone [facility] [address] [place] [phone] Heidy Daley MD 04/28/2024 11:00 AM EST Office Visit [facility] [address] [place] [phone] Heidy Daley MD Encounter for immunization (Primary Dx); Dietary counseling; Exercise counseling; Class 1 obesity due to excess calories with serious comorbidity and body mass index (BMI) of 32.0 to 32.9 in adult; Pituitary adenoma (CMS/HCC); Diabetes mellitus without complication (CMS/HCC); Dyslipidemia; Chronic pain of both knees; Atypical squamous cells of undetermined significance on cytologic smear of cervix (ASC-US); PCOS (polycystic ovarian syndrome); Other specified health status 04/28/2024 Travel 04/13/2024 Patient Outreach [facility] [address] [place] [phone] Heidy Daley MD Pre-visit Planning (Pre-visit planning - LVM ) 04/11/2024 Abstract [facility] [address] [place] [phone] Heidy Daley MD from Last 3 Months Immunizations Name Administration Dates Next Due HPV, Quadrivalent 02/19/2011,10/15/2010,08/20/19 11 Hep B, adult 05/10/2008,11/29/2007,10/26/2007 MMR 10/26/2007 Moderna Covid-19 Vaccine 12+ 06/20/2021,09/27/19 21,08/29/2020 Pfizer Covid-19 Vaccine 12+ Bivalent 03/23/2022 Pneumococcal Conjugate PCV 20 04/28/2024 Pneumococcal Polysaccharide PPSV23 07/25/2018 TD (adult), 2 Lf tetanus tox oid, preservative free, adsorbed 11/29/2007 Tdap 07/25/2018 Varicella 11/29/2007,10/26/2007 Social History Tobacco Use Types Packs/Day Years Used Date Smoking Tobacco: Never Smokeless Tobacco: Never Tobacco Cessation:Counseling Given: Not Answered Alcohol Use Standard Drinks/Week Comments Never 0 (1 standard drink = 0.6 oz pur e alcohol) Depression Answer Date Recorded Patient Health Questionnaire-9 Score 10 04/28/2024 Patient Health Questionnaire-9 Score 10 04/28/2024 Last PHQ-9: Questionnaire Data Not on file 1 06/29/2023 Housing Stability Answer Date Recorded What is your housing situation today? I have farhan cevallos 04/28/[address] you li ve. Do you have problems with any of the following? Pests such as bugs, ants, or mice;Mold 04/28/2024 Food Insecurity Answer Date Recorded Within the past 12 months, y ou worried that your food would run out before you got money to buy more: Never True 04/28/2024 Within the past 12 months,th e food you bought just didn't last and you didn't have enough money to get more: Never True 10/2023 Transportation Answer Date Recorded In the past 12 months, has l ack of transportation kept you from medical appts, meetings, work or from getting things needed for daily living? No 04/28/2024 Utilities Answer Date Recorded In the past 12 months, has t he electric, gas, oil or water company threatened to shut off services in your home? No 04/28/2024 Depression Answer Date Recorded Patient Health Questionnaire-2 Score 2 04/28/2024 Internet Access Answer Date Recorded Internet Access Q1 Yes 04/28/2024 Internet Access Q2 Not on file 04/28/2024 Comments Unknown Sex and Gender Information Value Date Recorded Sex Assigned at Female 03/23/2022 10:20 AM EDT Legal Sex Female 10:20 AM EDT Gender Identity Female 03/23/2022 10:20 AM EDT Sexual Orientation Straight 03/23/2022 10 :20 AM EDT Last Filed Vital Signs Vital Sign Reading Time Taken Comments Blood Pressure 118/83 04/28/2024 10:46 AM EST Pulse 76 04/28/2024 10:46 AM EST Temperature 36.4 ??C (97.5 ??F) 04/28/2024 10:[address] Respiratory Rate 20 04/28/2024 10:46 AM EST Oxygen Saturation 97% 04/28/2024 10:46 AM EST Inhaled Oxygen Concentration - - Weight 86.2 kg (190 lb) 04/28/2024 10:46 AM EST Height 167.6 cm (5' 6 ) 04/28/2024 10:46 AM EST Body Mass Index 30.67 04/28/2024 10:46 AM EST Plan of Treatment Health Maintenance Due Date Last Done Comments Diabetes: Foot Exam 02/19/1996 Eye Exam 02/19/1996 Family Planning (PISQ) 2001 Dental Oral Exam 11/04/2023 05/04/2023, 06/2020, 02/07/2019, Additional history exists Dental Prophylaxis 05/05/2024 11/03/2023, 1 07/05/2022, 12/23/2020, Additional history exists Dental X-Ray: Bitewings 05/05/2024 05/04/20 23, 12/23/2020, 02/07/2019, Additional history exists Cervical Cancer Screening 06/07/2024 HPV/Cotest 06/07/2024 04/13/2023, 12/22, 01/05/2018 Pap Smear 06/07/2024 04/09/2023, 01/05/2018 Depression Monitoring (PHQ-9) 10/27/2024 04/28/2024, 04/28/2024 Influenza Vaccine (#1) 2024 Postp oned from 01/23/2024 (Patient Refused) Diabetes: Hemoglobin A1C 12/07/2024 025, 02/29/2024, 04/09/2023, Additional history exists Alcohol/Substance Use Screening 04/28/2025 04/28/2024 COVID-19 Vaccine ( season) 2025 03/23/2022, 06/20/2021, 09/26/2020, Additional history exists Postponed from 01/23/2024 (Patient Refused) Depression Screening 04/28/2025 04/28/2024, 04/28/20 24 SDOH Screening 04/28/2025 04/28/2024 Tobacco Screening 04/28/2025 04/28/2024 Diabetes: Urine Protein Screening 06/09/2025 06/09/2024, 04/08/2023 Lipid Panel 06/09/2025 06/09/2024, 03/24, 11/18/2021 Dental X-Ray: Full Mouth 05/05/2026 023, 02/07/2019, 05/04/2012 DTaP/Tdap/Td Vaccines (2 - Td or Tdap) 07/25/2028 07/25/2018, 11/29/2007 Zoster Vaccines (1 of 2) 02/19/2036 RSV Patients and Patients Aged 60 years or older (1 - 1-dose 75+ series) 2061 Hepatitis B Vaccines Completed 05/10/2008, 11/29/2007, 10/26/2007 HPV Vaccines Completed 02/19/2011, 09/22, 08/19/2010 HIV Screening Completed 04/09/2023, 11/18/2021 Hepatitis C Screening Completed 04/09/2023 , 04/08/2023, 04/08/2023 Pneumococcal Vaccine: Pediatrics (0 to 5 Years) and At-Risk Patients (6 to 49) Years) Completed 04/28/2024, 07/25/2018 HIB Vaccines Aged Out No longer eligi ble based on patient's age to complete this topic Hepatitis A Vaccines Aged Out No long er eligible based on patient's age to complete this topic IPV Vaccines Aged Out No longer eligi ble based on patient's age to complete this topic Meningococcal Vaccine Aged Out No jennifer mirta eligible based on patient's age to complete this topic RSV under 20 months Aged Out No longe r eligible based on patient's age to complete this topic Rotavirus Vaccines Aged Out No longer eligible based on patient's age to complete this topic Procedures Procedure Name Priority Date/Time Associated Diagnosis Comments CBC WITH AUTO DIFFERENTIAL Routine 06/09/2024 9:05 AM EST Diabetes mellitus without complication (CMS/HCC) BASIC METABOLIC PANEL Routine 06/09/2024 9:05 AM EST Diabetes mellitus without complication (CMS/HCC) HEMOGLOBIN A1C Routine 06/09/2024 9:05 AM EST Diabetes mellitus without complication (CMS/HCC) LIPID PANEL, STANDARD Routine 06/09/2024 9:05 AM EST Diabetes mellitus without complication (CMS/HCC) HEPATIC FUNCTION PANEL Routine 06/09/2024 9:05 AM EST Diabetes mellitus without complication (CMS/HCC) ALBUMIN, RANDOM URINE W/CREATININE Routine 06/09/2024 9:05 AM EST Diabetes mellitus without complication (CMS/HCC) Full PROPHYLAXIS - ADULT Routine 11/03/2023 8:00 AM EDT Dental plaque Dental calculus DIAGNOSTIC - DIAGNOSTIC IMAGING - INTRAORAL - COMPREHENSIVE SERIES OF RADIOGRAPHIC IMAGES Routine 05/04/2023 8:00 AM EST Dental caries Dental calculus PERIODIC ORAL EVALUATION - ESTABLISHED PATIENT Routine 05/04/2023 8:00 AM EST Dental calculus Secondary dental caries associated with failed or defective dental [facility] HPV MRNA E6/E7 REFLEX TO HPV 16, 18/45 Routine 04/13/2023 9:45 AM EST HEPATITIS C VIRAL RNA, QUANTITATIVE, REAL-TIME PCR Routine 04/09/2023 12:40 PM EST HIV 1/2 ANTIGEN/ANTIBODY, FOURTH GENERATION W/RFL Routine 04/09/2023 12:40 PM EST Routine screening for STI (sexually transmitted infection) PAP SMEAR Routine 04/09/2023 9:45 AM EST from Last 3 Months or Most Recently Relevant to Health Maintenance Results * Albumin, Random Urine W/Creatinine (06/09/2024 9:05 AM EST) Creatinine, Urine 130.39 mg/dL [facility] Microalbumin Urine <5.0 mg/L [facility] Microalbum Creatinine Ratio Ur TNP <30 ug/mg cr [facility] Comment:Unable to calculate albumin/creatinine ratio due to lowmicroalbumin or creatinine result. Urine 06/09/2024 9:05 AM EST 06/09/2024 11:17 AM EST us Heidy Daley MD LAB URINE ORDERABLES Final Result [facility] [address] [place] [phone] * CBC auto differential (06/09/2024 9:05 AM EST) White Blood Count 8.9 4.8 - 10.8 X10*3/uL [facility] Red Blood Count 4.58 4.20 - 5.50 X10*6/uL [facility] Hemoglobin 12.5 12.0 - 16.0 g/dl [facility] Hematocrit 38.2 37.0 - 47.0 % [facility] Mean Corpuscular Volume 83.4 80.0 - 98.0 fL [facility] Mean Corpuscular Hemoglobin 27.3 27.0 - 33.0 pg [facility] Mean Corpuscular HGB Conc 32.7 31.0 - 35.0 g/dl [facility] Red Cell Distribution Width 12.7 11.0 - 16.0 % [facility] Platelet Count 316 160 - 400 X10*3/uL [facility] Mean Platelet Volume 10.4 9.4 - 12.3 fL [facility] Neutrophils Percent Auto 70.6 45 - 73 % [facility] Imm Gran Pct Auto 0.3 0.0 - 0.4 % [facility] Lymphocytes Percent Auto 21.1 20 - 40 % [facility] Monocytes Percent Auto 6.4 2 - 11 % [facility] Eosinophils Percent Auto 1.2 0 - 4 % [facility] Basophils Percent Auto 0.4 0 - 2 % [facility] NRBC Pct Auto 0.0 0.0 - 0.2 /100WBC [facility] Neutrophils Absolute Auto 6.3 2.0 - 8.3 x10*3/uL [facility] Imm Gran Abs Auto 0.03 0.00 - 0.03 X10*3/uL [facility] Lymphocytes Absolute Auto 1.9 1.2 - 4.9 X10*3/uL [facility] Monocytes Absolute Auto 0.6 0.1 - 1.2 X10*3/uL [facility] Eosinophils Absolute Auto 0.1 0.0 - 0.4 X10*3/uL [facility] Basophils Absolute Auto 0.0 0.0 - 0.2 X10*3/uL [facility] NRBC Abs Auto 0.000 0.0 - 0.012 X10*3/uL [facility] Blood Venous blood specimen / Unknown 06/09/2024 9:05 AM EST 06/09/2024 11:30 AM EST Heidy Daley MD LAB BLOOD ORDERABLES Final Result Performing Organization Address City/[facility]/ZIP Co de Phone Number [facility] [address] [place] [phone] * (ABNORMAL) Hemoglobin A1c (06/09/2024 9:05 AM EST) Hemoglobin A1c 6.2(H) <6.0 % [facility] Comment:Hemoglobin A1C Refer ence Range Adults: 4.8 - 6.0 % Non diabetic: < 6.0 % Goal: < 7.0 %Additional Action Suggested: > 8.0 %Note: Hemoglobin A1c results are invalid for patients with abnormal amounts of HbF. Blood transfusions may impact the HbA1c concentration in the patient sample. Estimated Average Glucose 131 mg/dL [facility] Comment:eAG = Estimated ave rage glucose which is %A1C expressed asaverage glucose, using the formula of the A2P-OjsfgurMveztzx Glucose study (ADAG), Diabetes Care, Vol.31,#8,Dec. 2007 Blood Venous blood specimen / Unknown 06/09/2024 9:05 AM EST 06/09/2024 11:30 AM EST Heidy Daley MD LAB BLOOD ORDERABLES Final Result Performing Organization Address City/[facility]/ZIP Co de Phone Number [facility] [address] [place] [phone] * Hepatic Function Panel (06/09/2024 9:05 AM EST) Bilirubin, Total 0.7 0.0 - 1.0 mg/dL [facility] Bilirubin, Direct 0.2 0.0 - 0.5 mg/dL [facility] Aspartate Amino Transferase 17 5 - 31 U/L [facility] Alanine Aminotransferase 16 0 - 31 U/L [facility] Total Protein 7.3 6.5 - 8.0 g/dL [facility] Albumin Level 4.0 3.5 - 5.0 g/dL [facility] Alkaline Phosphatase 88 39 - 117 U/L [facility] Blood Venous blood specimen / Unknown 06/09/2024 9:05 AM EST 06/09/2024 11:30 AM EST Heidy Daley MD LAB BLOOD ORDERABLES Final Result [facility] [address] [place] [phone] * (ABNORMAL) Lipid Panel, Standard (06/09/2024 9:05 AM EST) Triglycerides 98 <150 mg/dL [facility] Comment:Desirable Triglyceri de: less than 150 mg/dLBorderline High Triglyceride 150-199 mg/dLHigh Triglyceride: 200-499 mg/dLVery High Triglyceride: greater than or equal to 5OO mg/dL Cholesterol 133 <200 mg/dL [facility] Comment:Desirable Cholestero l: less than 200 mg/dLBorderline High Cholesterol: 200-239 mg/dLHigh Cholesterol: greater than 239 mg/dL LDL Cholesterol Calculated 76 <100 mg/dL [facility] Comment:Desirable LDL: less than 100 mg/dLNear Optimal/Above Optimal LDL: 110- 129 mg/dLBorderline High LDL: 130-159 mg/dLHigh LDL: 160-189 mg/dLVery High LDL: greater than or equal to 190 mg/dL HDL Cholesterol 38(L) >40 mg/dL [facility] Comment:Desirable HDL: great er than 40 mg/dL Note: This HDL assay may give artificially low results in patients with liver disease. Blood Venous blood specimen / Unknown 06/09/2024 9:05 AM EST 06/09/2024 11:30 AM EST Heidy Daley MD LAB BLOOD ORDERABLES Final Result Performing Organization Address [facility] Co de Phone Number [facility] [address] [place] [phone] * (ABNORMAL) Basic Metabolic Panel (06/09/2024 9:05 AM EST) [facility] Sodium 137 135 - 145 mmol/L [facility] Potassium 3.8 3.3 - 5.1 mmol/L [facility] Chloride 107 96 - 108 mmol/L [facility] Carbon Dioxide 25 22 - 29 mmol/L [facility] Anion Gap 9(L) 12 - 20 [facility] Urea Nitrogen (BUN) 12 9 - 16 mg/dL [facility] Creatinine, Serum 0.75 0.5 - 1.4 mg/dL [facility] Estimated Glomerular Filt Rate >60 [facility] Comment:Chronic Kidney Disea se: Estimated GFR < 60 mL/min/1.66v2Imwpmv Kidney Disease: Estimated GFR < 15 mL/min/1.73m2 Glucose 148(H) 60 - 115 mg/dL [facility] Calcium 8.9 8.4 - 10.2 mg/dL [facility] Blood Venous blood specimen / Unknown 06/09/2024 9:05 AM EST 06/09/2024 11:30 AM EST Heidy Daley MD LAB BLOOD ORDERABLES Final Result Performing Organization Address [facility] Co de Phone Number [facility] [address] [place] [phone] * (ABNORMAL) HPV mRNA E6/E7 w/Reflex to HPV Genotypes 16, 18/45 (04/13/2023 9:45 AM EST) [facility] HPV nRNA E6/E7 Detected(A ) Not Detected [facility] Comment:Methodology: Transcr iption-Mediated AmplificationThis assay detects E6/E7 viral messenger RNA (mRNA) from 14high-risk HPV types (16,18,31,33,35,39,45,51,52,56,58,59,66,68).Cervical sources are required for HPV testing.If a vaginal source from a patient who has had atotal hysterectomy with removal of cervix wassubmitted, please contact the testing laboratoryfor alternative testing options.For additional information, please refer [email or web address](This link if provided for information/educational purposes only.)THIS TEST WAS PERFORMED AT:[facility] [address] [phone] RUIZ MD HPV 16 RNA NOT DETECTED NOT DETECTED [facility] HPV 18/45 RNA NOT DETECTED NOT DETECTED [facility] Comment:Methodology: Transcr iption Mediated AmplificationCervical sources are required for HPV testing.If a vaginal source from a patient who has had atotal hysterectomy with removal of cervix wassubmitted, please contact the testing laboratoryfor alternative testing options.THIS TEST WAS PERFORMED AT:[facility] [address] [phone] RUIZ MD 04/13/2023 9:45 AM EST 04/13/2023 10:30 AM EST Heidy Daley MD LAB CYTOLOGY ORDERABLES Fi nal Result [facility] [address] [place] [phone] * Hepatitis C Viral RNA, Quantitative, Real-Time PCR (04/09/2023 12:40 PM EST) Hepatitis C Viral Load <15 NOT DETECTED NOT DETECTED IU/mL [facility] HCV Log PCR <1.18 NOT DETECTED NOT DETECTED Log IU/mL [facility] Comment:This test was perfor med using Real-Time Polymerase ChainReaction.Reportable Range: 15 IU/mL to 100,000,000 IU/mL(1.18 Log IU/mL to 8.00 Log IU/mL).The analytical performance characteristics of thisassay have been determined by [facility].The modifications have not been cleared or approved bythe FDA. This assay has been validated pursuant to theCLIA regulations and is used for clinical purposes.For more information on this test, go to:http://education.[employer] World/faq/MYA14z3(This link is being provided for informational/educational purposes only.)THIS TEST WAS PERFORMED AT:[employer] [place] [id number] RUIZ MD 04/09/2023 12:4 0 PM EST 04/09/2023 1:26 PM EST Heidy Daley MD LAB BLOOD ORDERABLES Final Result Performing Organization Address [facility]/ZIP Co de Phone Number [facility] [address] [place] [phone] * HIV-1/2 Antigen and Antibodies, Fourth Generation, with Reflexes (04/09/2023 12:40 PM EST) HIV AB/AG Nonreactive Nonreactive [facility] Comment:HIV-1 p24 Ag and/or HIV-1/HIV-2 Ab not detected.A test result that is nonreactive does not exclude thepossibility of exposure to or infection with HIV-1 and/orHIV-2. Nonreactive results in this assay for individualswith prior exposure to HIV-1 and/or HIV-2 may be due toantigen and antibody levels that are below the limit ofdetection of this assay.The [employer] HIV Ag/Ab Combo assay result andsupplemental assay results should be interpreted inconjunction with the patient's clinical presentation,history and other laboratory results. If the results areinconsistent with clinical evidence, additional testing issuggested to confirm the result. Blood Venous blood specimen / Unknown 04/09/2023 12:40 PM EST 04/09/2023 1:26 PM EST Heidy Daley MD LAB BLOOD ORDERABLES Final Result Performing Organization Address [facility]/ZIP Co de Phone Number [facility] [address] [place] [phone] * Pap Smear (04/09/2023 9:45 AM EST) 04/09/2023 9:45 AM EST 04/13/2023 10:30 AM EST [facility] - 04/21/2023 9:52 AM EST ----- ------- Name: Bren Mejia ?Age/Sex: 38/F ? : 1985 Unit#: [id number] ?? Attend Dr: Heidy Daley MD ?Re04/09/23 ?Status: DEP REF ? Location: [facility] ? Disch: ? ----- ------- SPEC : [id number] ?RECD: 04/13/23-1029 ? STATUS: ??SOUT ? REQ NUM: [id number] ? DEANGELO: 04/09/23-0945 ? SUBM DR: Heidy Daley MD ? ENTERED: ??04/13/23-1222 ?SP TYPE: Pap Smr ?OTHR : ? ORDERED: ??Pap Smear, PAP path review ? Interpretation ?? General Category: ?? Epithelial cell abnormality. ?? Adequacy: ? Endocervical component present. ?? Interpretation: ? Atypical squamous cells of undetermined significance. ??Fungal ?? organisms consistent with Annalise species. ? HPV mRNA E6/E7: ?DETECTED ? This assay detects E6/E7 viral messenger RNA (mRNA) from 14 high-risk HPV types (16, 18, ?? 31, 33, 35, 39, 45, 51, 52, 56, 58, 59, 66, 68) ? HPV Type 16 RNA: ?Not Detected ?? HPV Type 18/45 RNA: ? Not Detected ? HPV testing performed by [facility], [place], [place]. ??See reference laboratory ?? portion of the EMR for entire report. ?Clinical Information LMP: Unknown date Previous PAP test: Unknown date, WNL Other history: PCOS ? Material Received ?? ThinPrep-Cervical ----- ------- Signed (signature on file) Ashley Jesus MD 04/21/23 0952 ? ----- ------- ? END OF REPORT ? Heidy Daley MD LAB CYTOLOGY ORDERABLES Fi nal Result [facility] [address] [place] [address] [phone] from Last 3 Months or Most Recently Relevant to Health Maintenance Insurance [facility] , [address] [place] [address] GENERIC DENTAL Advance Directives Documents on File Type Date Recorded Patient Medical Assistant Prn Expl anation Advance Directives and Living Will 04/28/2024 Health Care Proxy 04/28/24 Care Teams Design Assistant Relationship Specialty Start Date End Date [place], MD Heidy [address] [place] [phone] PCP - General Family Medicine 05/24/18 Timoteo Ramirez MD [address] [place] [address] [address] [place] [address] Orthopaedic Surgery 06/13/24 Jacey GayD Endocrinology 04/19/24
--- OUTSIDE RECORDS SUMMARY | 2024-06-27 08:11 | XMS_ITS | Encounter Summary ---
Author Organization [employer] Address [address] [facility] [address] [place] [address] Care Team Providers Care Breaker Tender Name Role Phone Heidy Daley MD Primary Care Provider [phone]- [phone] Timoteo Ramirez MD Unavailable Encounter Details Date Type Department Care Team ([facility] st Contact Info) Description 06/07/2022 Abstract [facility] [address] [place] [address] Heidy Daley MD [address] [place] [address] PCOS (polycystic ovarian syndrome); Diabetes mellitus without complication ([facility]); Elevated prolactin level; Refusal of blood transfusions as patient is Latter day; Preventative health care Social History Tobacco Use Types Packs/Day Years [...] on file documented as of this encounter Procedures Procedure Name Priority Date/Time Associated Diagnosis Comments HPV HIGH RISK PCR Routine 01/05/2018 12:00 AM EDT PAP SMEAR Routine 01/05/2018 12:00 AM EDT documented in this encounter Results * HPV High Risk PCR (01/05/2018 12:00 AM EDT) Swab Cervical swab / Unknown Heidy Daley MD LAB MICROBIOLOGY - GENERAL ORDERABLES Final Result Performing Organization Address City/[facility]/ZIP Co de Phone Number [facility] [address] [place] [phone] * Pap Smear (01/05/2018 12:00 AM EDT) Swab Heidy Daley MD LAB CYTOLOGY ORDERABLES Fi nal Result Performing Organization Address City/[facility] Co de Phone Number [facility] [address] [place] [phone] documented in this encounter Visit Diagnoses Diagnosis PCOS (polycystic ovarian syndrome) Polycystic ovaries Diabetes mellitus without complication (CMS/HCC) Type II or unspecified type diabetes mellitus without mention of complication, not stated as uncontrolled Elevated prolactin level Refusal of blood transfusions as patient is Latter day Refusal of treatment for reasons of lutheran or conscience Preventative health care Routine general medical examination at a health care facility documented in this encounter Care Teams Breaker Tender Relationship Specialty Start Date End Date Heidy Daley MD [address] [place] [phone] PCP - General Family Medicine 05/24/18 Timoteo Ramirez MD [address] [place] [phone] Orthopaedic Surgery 06/13/24 Heidy Conklin, JaceyD Endocrinology 04/19/24 documented as of this encounter
--- OUTSIDE RECORDS SUMMARY | 2024-06-27 08:11 | XMS_ITS | Encounter Summary ---
Author Organization [employer] Address [address] [facility] 7[address] [place] [address] Care Team Providers Care Embroiderer Hand Name Role Phone Heidy Daley MD Primary Care Provider [phone]- [phone] Timoteo Ramirez MD Unavailable Reason for Visit * Reason Onset Date Comments Appointment Request 06/16/2024 Encounter Details Date Type Department Care Team ([facility] st Contact Info) Description 06/16/2024 Telephone [facility] [address] [place] [address] Heidy Daley MD [address] [place] [address] Appointment Request Social History Tobacco Use Types Packs/Day Years [...] your housing situation today? I have farhan sing 04/28/[address] you li [...] encounter Miscellaneous Notes * Telephone Encounter - Long Marquez - 06/16/2024 4:23 PM EST Tc from Heidy in [facility] requesting that instead of mutual pt being seen once a year. That she should be seen once every 6 months for diabetes. (A1C was 6.3%) And heidy states that PCP should take care of pt diabetes moving forward. Please Contact Heidy: [phone] documented in this encounter Plan of Treatment Not on file documented as of this encounter Visit Diagnoses Not on filedocumented in this encounter Additional Health Concerns Assessment Noted Time PHQ-9 Depression Total Score: 10 024 11:20 AM EST documented as of this encounter Care Teams Embroiderer Hand Relationship Specialty Start Date End Date Heidy Daley MD [address] [place] [phone] PCP - General Family Medicine 05/24/18 Timoteo Ramirez MD [address] [place] [address] Orthopaedic Surgery 06/13/24 Heidy Conklin, PharmD Endocrinology 04/19/24 documented as of this encounter
--- OUTSIDE RECORDS SUMMARY | 2024-06-27 08:11 | XMS_ITS | Encounter Summary ---
Author Organization [employer] [facility] Address [address] [place] [address] 7t [place] [address] Care Team Providers Care Respiratory Coordinator Name Role Phone Heidy Daley MD Primary Care Provider +1- [phone] Timoteo Ramirez MD Unavailable Encounter Details Date Type Department Care Team (Latest Contact Info) Description 12/23/2020 Abstract [facility] Dental, Provider, DDS Social History Tobacco [...] on filedocumented in this encounter Care Teams Respiratory Coordinator Relationship Specialty Start Date End Date Heidy Daley MD [address] [place] [phone] PCP - General Family Medicine 05/24/18 Timoteo Ramirez MD [address] [place] [phone] Orthopaedic Surgery 06/13/24 Heidy Conklin, JaceyD Endocrinology 04/19/24 documented as of this encounter
[2024-07-06 15:10] LABS: HPV Genotype 16 Negative (Negative); HPV Genotype 18 Negative (Negative); HPV High Risk Negative (Negative)
== END 2024-06-27 07:34 | disposition home or self-care (01) ==
LOC: HO.LNP 07:33
PROVIDERS: PCP Family Medicine; Visit Provider Obstetrics & Gynecology
DX: Z01.419 Encounter for gynecological examination (general) (routine) without abnormal findings (principal)
CPT/HCPCS: 87626; 88175

== ENCOUNTER → 2024-06-29 17:56 | Outpatient (BNV) | payer OTHER, SELFPAY | PROVIDERS: PCP Family Medicine; Visit Provider Radiology Diagnostic Radiology | DX: S83.241A Other tear of medial meniscus, current injury, right knee, initial encounter (principal) | CPT/HCPCS: 73721 ==

== ENCOUNTER 2024-07-27 07:39 | Outpatient (AMB) | payer OTHER, SELFPAY ==
--- OUTSIDE RECORDS SUMMARY | 2024-07-27 07:42 | XMS_ITS | Clinical Summary ---
Author Organization [employer] Address [address] [facility] [address] [place] [address] Care Team Providers Care Transmission Worker Name Role Phone Heidy Daley MD Primary Care Provider [phone] Timoteo Ramirez MD Unavailable Chris Parada MD Unavailable Allergies No known active allergies [...] Problem Noted Date Diagnosed Date Dyslipidemia 04/28/2024 Overview (06/28/2024): Lab Results Component Value Date CHOL 133 06/09/2024 CHOL 143 04/08/2023 TRIG 98 06/09/2024 TRIG 115 04/08/2023 HDL 38 (L) 06/09/2024 HDL 40 (L) 04/08/2023 LDLCHOLCAL 76 06/09/2024 LDLCHOLCAL 80 04/08/2023 -continue lifestyle modification Chronic pain of both knees 04/28/2024 Overview (06/30/2024): Unremarkable XRs in July 2023 -Seen by Timoteo Ramirez MD, orthopedist 06/09/24 most likely due to a medial meniscus tear. Thus, I will send the patient for an MRI of her right knee for further evaluation. I will see her back once the MRI is completed to discuss the findings and treatment options. -MR of right knee 06/29/24 MR/MR knee RT wo con IMPRESSION: Thinning of the cartilage involving the medial patellar facet. Small focus of marrow edema involving the anterior intercondylar notch of the femur. Patella yeimi. Edema of the suprapatellar fat pad, demonstrating a convex posterior border. These findings can be seen in the setting of prefemoral fat pad impingement. Clinical correlation is recommended. Assessment & Plan (04/28/2024 10:14 PM EST): Unremarkable XRs in July 2023 -referred to Orthopedics 04/28/24 Abnormal Pap smear of cervix 04/22/2023 Overview (07/20/2024): -Pap 03/2023 ASCUS, HPV positive, referral to [place] [facility] placed 04/22/23 -ECC and Colposcopy completed by on 06/07/2023 was normal and the recommendation is to co-test in one year -Pap with Dr. Parada 06/28/24 CLARKM, HPV negative Assessment & Plan (04/28/2024 10:11 PM EST): Pap 03/2023 ASCUS, HPV positive, referral to [place] [facility] placed 04/22/23 Hepatitis C antibody test positive 04/09/2023 Overview (04/27/2023): -positive on routine screening 03/2023, viral load negative Refusal of blood transfusion s as patient is Mandaeism 2023 Other specified health status 2023 Overview (04/28/2024): -next physical exam due after 04/28/2025 -eye care facilitated by Dr. Hal Leary of [facility], encouraged to follow up 04/09/2023 -dental home is [facility] -health care proxy Assessment & Plan (04/28/2024 10:11 PM EST): -next physical exam due after 04/28/2025 -eye care facilitated by Dr. Hal Leary of [facility], encouraged to follow up 04/09/2023 -dental home is [facility] -health care proxy Assessment & Plan (04/09/2023 10:14 AM EST): -next physical exam due after 04/09/2024 -eye care facilitated by Dr. Hal Leary of [facility], encouraged to follow up 04/09/2023 -dental home is Insomnia 08/19/2022 Fibromyalgia 08/19/2022 Pain in female pelvis 08/19/2022 Vitamin D deficiency 10/22/2021 Pituitary adenoma 10/22/2021 Overview (04/06/2024): 09/2020 Prolactin 37.5 -Followed by Endocrinology at [facility] . Note from 04/03/24 reveiwed Assessment & Plan (04/28/2024 10:12 PM EST): 09/2020 Prolactin 37.5 -Followed by Endocrinology at [facility] . Note from 04/03/24 reveiwed Assessment & Plan (04/09/2023 9:01 AM EST): 09/2020 Prolactin 37.5 -Followed by Endocrinology. Diabetes mellitus without complication 8 Overview (06/20/2024): Diabetes is not controlled. - Diagnosed 06/2017 based on fasting blood sugars of 147 (06/30/16) and 131 (06/18/17). -Previously followed by [facility] endocrinology but referred back to PCP 05/2024 due to well controlled Lab Results Component Value Date HGBA1C 6.2 (H) 06/09/2024 HGBA1C 7.7 (A) 02/29/2024 HGBA1C 7.8 (A) 04/09/2023 Lab Results Component Value Date CREATININE 0.75 06/09/2024 EGFR >60 06/09/2024 MICROALBCREU TNP 06/09/2024 MICROALBCREU 5.6 04/08/2023 LDLCHOLCAL 76 06/09/2024 -Kennedy/Arb: none -Statin therapy: none -Diabetic eye exam: followed by Dr. Hal Leary of [facility] -Diabetic foot exam: -Continue lifestyle modifications -note from [facility] endocrinology 04/03/24 reveiwed Assessment & Plan (04/28/2024 10:12 PM EST): Diabetes is not controlled. - Diagnosed 06/2017 based on fasting blood sugars of 147 (06/30/16) and 131 (06/18/17). -Followed by [facility] endocrinology but off meds due to they [...] exam: followed by Dr. Hal Leary of [facility] -Diabetic foot exam: -Continue lifestyle modifications -note from [facility] endocrinology 04/03/24 reveiwed Assessment & Plan (04/09/2023 11:52 AM EST): Diabetes is not controlled. - Diagnosed 06/2017 based on fasting blood sugars of 147 (06/30/16) and 131 (06/18/17). -Followed by [facility] endocrinology but off meds due to they [...] exam: followed by Dr. Hal Leary of [facility] -Diabetic foot exam: -Continue lifestyle modifications [...] discussed. -Preventative care / harm reduction discussed. Lower urinary tract symptoms 08/19/2022 06/28/2024 Chronic constipation 10/22/2021 024 Encounters * This document contains information received from the source organization and may not represent a complete record from that organization. Date Type Department Care Team Description 07/13/[address] [address] eHidy Daley MD Outgoing mail 06/28/2024 Orders Only [address] [address] Heidy Daley MD Atypical squamous cells of undetermined significance on cytologic smear of cervix (ASC-US) (Primary Dx); Chronic pain of both knees 06/16/[address] [address] Heidy Daley MD Appointment Request 05/22/[address] [address] Heidy Daley MD 04/28/2024 11:00 AM EST Office Visit [address] [address] Heidy Daley MD Encounter for immunization (Primary Dx); Dietary counseling; Exercise counseling; Class 1 obesity due to excess calories with serious comorbidity and body mass index (BMI) of 32.0 to 32.9 in adult; Pituitary adenoma ([facility]/HCC); Diabetes mellitus without complication (CMS/HCC); Dyslipidemia; Chronic pain of both knees; Atypical squamous cells of undetermined significance on cytologic smear of cervix (ASC-US); PCOS (polycystic ovarian syndrome); Other specified health status 04/28/2024 Travel from Last 3 Months Immunizations Name Administration [...] Additional history exists Dental X-Ray: Bitewings 05/05/2024 05/04/20, 12/23/2020, 02/07/2019, Additional history exists Depression Monitoring (PHQ-9) 10/27/2024 04/28/2024, 04/28/2024 Influenza [...] X-Ray: Full Mouth 05/05/2026 023, 02/07/2019, 05/04/2012 Cervical Cancer Screening 06/27/2027 HPV/Cotest 06/27/2027 06/27/2024, 03/25, 01/05/2018, Additional history exists Pap Smear 06/27/2027 06/27/2024, 03/24, 01/05/2018 DTaP/Tdap/Td Vaccines (2 - Td or Tdap) [...] Procedure Name Priority Date/Time Associated Diagnosis Comments MR KNEE WO CONTRAST RIGHT Routine 06/29/2024 6:00 PM EST PAP SMEAR Routine 06/27/2024 8:07 AM EST Atypical squamous cells of undetermined significance on cytologic smear of cervix (ASC-US) HPV DNA, LOW/HIGH RISK Routine 06/27/2024 8:07 AM EST Atypical squamous cells of undetermined significance on cytologic smear of cervix (ASC-US) CBC WITH AUTO DIFFERENTIAL Routine 06/09/2024 9:05 [...] 8:00 AM EDT Dental plaque Dental calculus INTRAORAL - COMPLETE SERIES OF RADIOGRAPHIC IMAGES Routine 05/04/2023 8:00 AM EST Dental caries Dental calculus PERIODIC ORAL EVALUATION - ESTABLISHED PATIENT Routine 05/04/2023 8:00 AM EST Dental calculus Secondary dental caries associated with failed or defective dental holiness HEPATITIS C VIRAL RNA, QUANTITATIVE, REAL-TIME PCR Routine 04/09/2023 12:40 PM EST HIV 1/2 ANTIGEN/ANTIBODY, FOURTH GENERATION W/RFL Routine 04/09/2023 12:40 PM EST Routine screening for STI (sexually transmitted infection) from Last 3 Months or Most Recently Relevant to Health Maintenance Results * MR Knee w/o Contrast Right (06/29/2024 6:00 PM EST) Anatomical Region Laterality Modality Magnetic Resonan ce 06/29/2024 6:00 PM EST Narrative 06/30/2024 7:48 AM EST ? [facility] ?[address] ?[place] [address] ? Magnetic Resonance Report ? Signed ? Patient: Bren Mejia ?MR#: ?? [id number] ? : 1985 ?Acct:[id number] ? Age/Sex: 39 / F ?ADM Date: 06/29/24 ? Loc: HO.MRI ? Attending Dr: Timoteo Ramirez MD ? Ordering Physician: Timoteo Ramirez MD ?? Date of Service: 06/29/24 ?? Procedure(s): MR knee RT wo con ?? Accession Number(s): [id number] ? cc: Heidy Daley MD; Timoteo Ramirez MD ? EXAMINATION: MRI RIGHT KNEE WITHOUT CONTRAST ? HISTORY: S83.241A - Other tear of medial meniscus, current injury, ?? right knee ? COMPARISON: Correlation is made with plain films of the right knee ?? dated 07/23/2023. ? TECHNIQUE: ??Coronal T1 and fat-suppressed proton density, sagittal ?? proton density and fat-suppressed proton density, and axial fat ?? suppressed T2 weighted MR images of the right knee were obtained. ? FINDINGS: ? Bone marrow: There is a focus of marrow edema involving the anterior ?? aspect of the intercondylar notch of the femur. Bone marrow signal ?? intensity is otherwise normal. ? Joint effusion: There is no joint effusion. ? Ponce's cyst: There is no Ponce's cyst. ? Articular cartilage: There is thinning of the cartilage involving the ?? medial patellar facet. Cartilage in the medial and lateral compartments ?? is preserved. ? Muscles/soft tissues: The visualized muscles demonstrate normal signal ?? intensity. There is edema of the suprapatellar fat pad which ?? demonstrates a convex posterior border. In addition, there is patella ?? yeimi. ? Anterior cruciate ligament: Intact ? Posterior cruciate ligament: Intact ? Medial collateral ligament: Intact ? Lateral collateral ligament: Intact ? Medial meniscus: Intact ? Lateral meniscus: Intact ? Popliteus tendon: Intact ? Quadriceps tendon: Intact ? Patellar tendon: Intact ? Patellar retinacula: Intact ? MR/MR knee RT wo con ?? IMPRESSION: ? 1. Thinning of the cartilage involving the medial patellar facet. Small ?? focus of marrow edema involving the anterior intercondylar notch of the ?? femur. ? 2. Patella yeimi. Edema of the suprapatellar fat pad, demonstrating a ?? convex posterior border. These findings can be seen in the setting of ?? prefemoral fat pad impingement. Clinical correlation is recommended. ? Electronically signed by: ??Yosi Bermudez MD ??06/30/2024 07:45 AM EST ?? RP ? Dictated By: ?Yosi Bermudez MD ? Signed By: ?<Electronically signed by Yosi Bermudez MD in OV> ?06/30/24 0745 ? DD/ 1800 ? TD/TT: 06/29/24 1830 ? Safety Teacher: ? Procedure Note Kimber Koo - 06/30/[address] [address] Magnetic Resonance Report Signed Patient: Milli Jeet Ferrera#: [id number] : 1985Acct:[id number] Age/Sex: 39 / FADM Date: 06/29/24 Loc: HO.MRI Attending Dr: Timoteo Ramirez MD Ordering Physician: Timoteo Ramirez MD Date of Service: 06/29/24 Procedure(s): MR knee RT wo con Accession Number(s): [id number] cc: Heidy Daley MD; Timoteo Ramirez MD EXAMINATION: MRI RIGHT KNEE WITHOUT CONTRAST HISTORY: S83.241A - Other tear of medial meniscus, current injury, right knee COMPARISON: Correlation is made with plain films of the right knee dated 07/23/2023. TECHNIQUE: Coronal T1 and fat-suppressed proton density, sagittal proton density and fat-suppressed proton density, and axial fat suppressed T2 weighted MR images of the right knee were obtained. FINDINGS: Bone marrow: There is a focus of marrow edema involving the anterior aspect of the intercondylar notch of the femur. Bone marrow signal intensity is otherwise normal. Joint effusion: There is no joint effusion. Ponce's cyst: There is no Ponce's cyst. Articular cartilage: There is thinning of the cartilage involving the medial patellar facet. Cartilage in the medial and lateral compartments is preserved. Muscles/soft tissues: The visualized muscles demonstrate normal signal intensity. There is edema of the suprapatellar fat pad which demonstrates a convex posterior border. In addition, there is patella yeimi. Anterior cruciate ligament: Intact Posterior cruciate ligament: Intact Medial collateral ligament: Intact Lateral collateral ligament: Intact Medial meniscus: Intact Lateral meniscus: Intact Popliteus tendon: Intact Quadriceps tendon: Intact Patellar tendon: Intact Patellar retinacula: Intact MR/MR knee RT wo con IMPRESSION: 1. Thinning of the cartilage involving the medial patellar facet. Small focus of marrow edema involving the anterior intercondylar notch of the femur. 2. Patella yeimi. Edema of the suprapatellar fat pad, demonstrating a convex posterior border. These findings can be seen in the setting of prefemoral fat pad impingement. Clinical correlation is recommended. Electronically signed by: Yosi Bermudez MD 06/30/2024 07:45 AM [facility] Dictated By: Yosi Bermudez MD Signed By: <Electronically signed by Yosi Bermudez MD in OV> 06/30/24 0745 DD/ 1800 TD/TT: 06/29/24 1830 Safety Teacher: [facility] External Provider IMG MRI PROCEDURES Final Result * HPV DNA, Low/High Risk (06/27/2024 8:07 AM EST) HPV High Risk Negative Negative [facility] HPV Genotype 16 Negative Negative [facility] HPV Genotype 18 Negative Negative [facility] Comment:HPV testing performe d at (CLIA#[id number]), [address] [place] [address].Testing for HPV was performed using the [employer]system. The presence of HPV in the female genital tract isassociated with a number of diseases, including cervicalcarcinoma. The HPV DNA high risk pool tests for HPV 31, 33,35, 39, 45, 51, 52, 56, 58, 59, 66 and 68. The testing forHPV 16 and 18 genotypes has also been performed. A positiveresult indicates detection of nucleic acid sequences fromone or more subtypes, whereas a negative result indicatessuch sequences were not detected. 06/27/2024 8:07 AM EST 06/28/2024 9:15 AM EST Generic External Data Provider LAB BLOOD ORDERAB LES Final Result [facility] [address] [place] [phone] * Pap Smear (06/27/2024 8:07 AM EST) 06/27/2024 8:07 AM EST 06/28/2024 9:15 AM EST Narrative [facility] - 07/06/2024 2:20 PM EST ----- ------- Name: Milli RaypcionBren ?Age/Sex: 39/F ? : 1985 Unit#: [id number] ?? Attend Dr: Chris Parada MD ?Re06/27/24 ?Status: DEP REF ? Location: HO.LNP ?Disch: ? ----- ------- SPEC : [id number] ? RECD: 06/28/24 ? STATUS: ??SOUT ? REQ NUM: [id number] ? DEANGELO: 06/27/24 ? SUBM DR: Chris Parada MD ? ENTERED: ??06/28/24 ?SP TYPE: Pap Smr ?OTHR DR: Heidy Daley MD ? ORDERED: ??Pap Smear, PAP path review ? Interpretation ?? General Category: ? Negative for intraepithelial lesion/malignancy. ?? Adequacy: ? Endocervical component present. ?? Interpretation: ? Reactive cellular changes. ?Fungal organisms consistent with Annalise species. ? HPV High Risk: ??Negative ? HPV Genotyping 16: ??Negative ?? HPV Genotyping 18: ??Negative ?Clinical Information LMP: 06/17/2024 Previous PAP test: 03/2023, ASCUS, + HPV ? Material Received ?? ThinPrep-Cervical Copies To: ?? Heidy Daley MD ?? [facility] ?? [address] ?? [place] [address] ?? [phone] ?? Chris Parada MD ?? [facility] ?? [address] ?? [place] [address] ?? [phone] ----- ------- Signed (signature on file) April Johnson 07/06/24 7835 ? ----- ------- ? END OF REPORT ? us Generic External Data Provider LAB CYTOLOGY ORDE RABLES Final Result Performing Organization Address [facility] Co de Phone Number [facility] [address] [place] [address] [phone] * Albumin, Random Urine W/Creatinine (06/09/2024 9:05 AM EST) Creatinine, Urine 130.39 mg/dL [facility] Microalbumin Urine <5.0 mg/L [facility] Microalbum Creatinine Ratio Ur TNP <30 ug/mg cr [facility] Comment:Unable to calculate albumin/creatinine ratio due to lowmicroalbumin or creatinine result. Urine 06/09/2024 9:05 AM EST 06/09/2024 11:17 AM EST Heidy Daley MD LAB URINE ORDERABLES Final Result Performing Organization Address [facility] de Phone Number [facility] [address] [place] [phone] * CBC auto differential (06/09/2024 9:05 AM EST) White Blood Count 8.9 4.8 - 10.8 X10*3/uL [facility] Red Blood Count 4.58 4.20 - 5.50 X10*6/uL [facility] Hemoglobin 12.5 12.0 - 16.0 g/dl [facility] Hematocrit 38.2 37.0 - 47.0 % [facility] Mean Corpuscular Volume 83.4 80.0 - 98.0 fL [facility] Mean Corpuscular Hemoglobin 27.3 27.0 - 33.0 pg [facility] Mean Corpuscular HGB Conc 32.7 31.0 - 35.0 g/dl [facility] Red Cell Distribution Width 12.7 11.0 - 16.0 % [facility] Platelet Count 316 160 - 400 X10*3/uL [facility] Mean Platelet Volume 10.4 9.4 - 12.3 fL [facility] Neutrophils Percent Auto 70.6 45 - 73 % [facility] Imm Gran Pct Auto 0.3 0.0 - 0.4 % [facility] Lymphocytes Percent Auto 21.1 20 - 40 % [facility] Monocytes Percent Auto 6.4 2 - 11 % [facility] Eosinophils Percent Auto 1.2 0 - 4 % [facility] Basophils Percent Auto 0.4 0 - 2 % [facility] NRBC Pct Auto 0.0 0.0 - 0.2 /100WBC [facility] Neutrophils Absolute Auto 6.3 2.0 - 8.3 x10*3/uL [facility] Imm Gran Abs Auto 0.03 0.00 - 0.03 X10*3/uL [facility] Lymphocytes Absolute Auto 1.9 1.2 - 4.9 X10*3/uL [facility] Monocytes Absolute Auto 0.6 0.1 - 1.2 X10*3/uL [facility] Eosinophils Absolute Auto 0.1 0.0 - 0.4 X10*3/uL [facility] Basophils Absolute Auto 0.0 0.0 - 0.2 X10*3/uL [facility] NRBC Abs Auto 0.000 0.0 - 0.012 X10*3/uL [facility] Blood Venous blood specimen / Unknown 06/09/2024 9:05 AM EST 06/09/2024 11:30 AM EST us Heidy Daley MD LAB BLOOD ORDERABLES Final Result [facility] [address] [place] [phone] * (ABNORMAL) Hemoglobin A1c (06/09/2024 9:05 AM EST) Hemoglobin A1c 6.2(H) <6.0 % [facility] Comment:Hemoglobin A1C Refer ence Range Adults: 4.8 - 6.0 % Non diabetic: < 6.0 % Goal: < 7.0 %Additional Action Suggested: > 8.0 %Note: Hemoglobin A1c results are invalid for patients with abnormal amounts of HbF. Blood transfusions may impact the HbA1c concentration in the patient sample. Estimated Average Glucose 131 mg/dL [facility] Comment:eAG = Estimated ave rage glucose which is %A1C expressed asaverage glucose, using the formula of the P5K-BtqqlhvYlqqikw Glucose study (ADAG), Diabetes Care, Vol.31,#8,Dec. 2007 Blood Venous blood specimen / Unknown 06/09/2024 9:05 AM EST 06/09/2024 11:30 AM EST Heidy Daley MD LAB BLOOD ORDERABLES Final Result Performing Organization Address [facility] Co de Phone Number [facility] [address] [place] [phone] * Hepatic Function Panel (06/09/2024 9:05 AM EST) Bilirubin, Total 0.7 0.0 - 1.0 mg/dL [facility] Bilirubin, Direct 0.2 0.0 - 0.5 mg/dL [facility] Aspartate Amino Transferase 17 5 - 31 U/L [facility] Alanine Aminotransferase 16 0 - 31 U/L [facility] Total Protein 7.3 6.5 - 8.0 g/dL [facility] Albumin Level 4.0 3.5 - 5.0 g/dL [facility] Alkaline Phosphatase 88 39 - 117 U/L [facility] Blood Venous blood specimen / Unknown 06/09/2024 9:05 AM EST 06/09/2024 11:30 AM EST Heidy Daley MD LAB BLOOD ORDERABLES Final Result Performing Organization Address City/[facility] Co de Phone Number [facility] [address] [place] [address] [phone] * (ABNORMAL) Lipid Panel, Standard (06/09/2024 9:05 AM EST) Triglycerides 98 <150 mg/dL [facility] Comment:Desirable Triglyceri de: less than 150 mg/dLBorderline High Triglyceride 150-199 mg/dLHigh Triglyceride: 200-499 mg/dLVery High Triglyceride: greater than or equal to 5OO mg/dL Cholesterol 133 <200 mg/dL [facility] Comment:Desirable Cholestero l: less than 200 mg/dLBorderline High Cholesterol: 200-239 mg/dLHigh Cholesterol: greater than 239 mg/dL LDL Cholesterol Calculated 76 <100 mg/dL [facility] Comment:Desirable LDL: less than 100 mg/dLNear Optimal/Above Optimal LDL: 110- 129 mg/dLBorderline High LDL: 130-159 mg/dLHigh LDL: 160-189 mg/dLVery High LDL: greater than or equal to 190 mg/dL HDL Cholesterol 38(L) >40 mg/dL [facility] Comment:Desirable HDL: great er than 40 mg/dL Note: This HDL assay may give artificially low results in patients with liver disease. Blood Venous blood specimen / Unknown 06/09/2024 9:05 AM EST 06/09/2024 11:30 AM EST Heidy Daley MD LAB BLOOD ORDERABLES Final Result [facility] [address] [place] [phone] [phone] * (ABNORMAL) Basic Metabolic Panel (06/09/2024 9:05 AM EST) Sodium 137 135 - 145 mmol/L [facility] Potassium 3.8 3.3 - 5.1 mmol/L [facility] Chloride 107 96 - 108 mmol/L [facility] Carbon Dioxide 25 22 - 29 mmol/L [facility] Anion Gap 9(L) 12 - 20 [facility] Urea Nitrogen (BUN) 12 9 - 16 mg/dL [facility] Creatinine, Serum 0.75 0.5 - 1.4 mg/dL [facility] Estimated Glomerular Filt Rate >60 [facility] Comment:Chronic Kidney Disea se: Estimated GFR < 60 mL/min/1.85y5Tercue Kidney Disease: Estimated GFR < 15 mL/min/1.73m2 Glucose 148(H) 60 - 115 mg/dL [facility] Calcium 8.9 8.4 - 10.2 mg/dL [facility] Blood Venous blood specimen / Unknown 06/09/2024 9:05 AM EST 06/09/2024 11:30 AM EST us Heidy Daley MD LAB BLOOD ORDERABLES Final Result [facility] [address] [place] [phone] * Hepatitis C Viral RNA, Quantitative, Real-Time PCR (04/09/2023 12:40 PM EST) Hepatitis C Viral Load <15 NOT DETECTED NOT DETECTED IU/mL [facility] HCV Log PCR <1.18 NOT DETECTED NOT DETECTED Log IU/mL [facility] Comment:This test was perfor med using Real-Time Polymerase ChainReaction.Reportable Range: 15 IU/mL to 100,000,000 IU/mL(1.18 Log IU/mL to 8.00 Log IU/mL).The analytical performance characteristics of thisassay have been determined by [employer].The modifications have not been cleared or approved bythe FDA. This assay has been validated pursuant to theCLIA regulations and is used for clinical purposes.For more information on this test, go to:http://education.[employer]/faq/ISB41t4(This link is being provided for informational/educational purposes only.)THIS TEST WAS PERFORMED AT:[employer] [place] [id number] RUIZ MD 04/09/2023 12:4 0 PM EST 04/09/2023 1:26 PM EST Heidy Daley MD LAB BLOOD ORDERABLES Final Result Performing Organization Address [facility] Co de Phone Number [facility] [address] [place] [address] [phone] * HIV-1/2 Antigen and Antibodies, Fourth Generation, with Reflexes (04/09/2023 12:40 PM EST) HIV AB/AG Nonreactive Nonreactive [facility] Comment:HIV-1 p24 Ag and/or HIV-1/HIV-2 Ab not detected.A test result that is nonreactive does not exclude thepossibility of exposure to or infection with HIV-1 and/orHIV-2. Nonreactive results in this assay for individualswith prior exposure to HIV-1 and/or HIV-2 may be due toantigen and antibody levels that are below the limit ofdetection of this assay.The [employer] [place] HIV Ag/Ab Combo assay result andsupplemental assay results should be interpreted inconjunction with the patient's clinical presentation,history and other laboratory results. If the results areinconsistent with clinical evidence, additional testing issuggested to confirm the result. Blood Venous blood specimen / Unknown 04/09/2023 12:40 PM EST 04/09/2023 1:26 PM EST Heidy Daley MD LAB BLOOD ORDERABLES Final Result Performing Organization Address [facility] Co de Phone Number [facility] [address] [place] [address] [phone] from Last 3 Months or Most Recently Relevant to Health Maintenance Insurance [facility] Advance Directives Documents on File Type Date Recorded Patient Public Health Social Worker Expl anation Advance Directives and Living Will 04/28/2024 Health Care Proxy 04/28/24 Care Teams Transmission Worker Relationship Specialty Start Date End Date [place], MD Heidy [address] [place] [address] PCP - General Family Medicine 05/24/18 Timoteo Ramirez MD [address] [place] [address] [address] [place] [address] Orthopaedic Surgery 06/13/24 Chris Parada MD [address] [place] [address] [address] [place] [address] Obstetrics and Gynecology 06/27/24 Heidy Conklin, PharmD Endocrinology 04/19/24
--- OUTSIDE RECORDS SUMMARY | 2024-07-27 07:42 | XMS_ITS | Encounter Summary ---
Author Organization [employer] Address [address] [facility] [address] 7t [place] [address] Care Team Providers Care Occupational Health Specialist Name Role Phone Heidy Daley MD Primary Care Provider +1- [phone] Timoteo Ramirez MD Unavailable Chris Parada MD Unavailable Encounter Details Date Type Department Care Team (Late st Contact Info) Description 04/22/2023 Orders Only [facility] [address] [place] [address] Heidy Daley MD [address] [place] [address] Atypical squamous cells of undetermined significance on [...] documented as of this encounter Care Teams Occupational Health Specialist Relationship Specialty Start Date End Date Heidy Daley MD [address] [place] [address] PCP - General Family Medicine 05/24/18 Timoteo Ramirez MD [address] [place] [address] [address] [place] [address] Orthopaedic Surgery 06/13/24 Chris Parada MD [address] [place] [address] [address] [place] [address] Obstetrics and Gynecology 06/27/24 Heidy Conklin PharmD Endocrinology 04/19/24 documented as of this encounter
--- OUTSIDE RECORDS SUMMARY | 2024-07-27 07:42 | XMS_ITS | Encounter Summary ---
Author Organization [employer] Address [address] [facility] 7t [place] [address] Care Team Providers Care Order Processor Name Role Phone Heidy Daley MD Primary Care Provider +1- [phone] Timoteo Ramirez MD Unavailable Chris Parada MD Unavailable Reason for Visit * Reason Onset Date Comments Outgoing mail 07/13/2024 Encounter Details Date Type Department Care Team (Late st Contact Info) Description 07/13/[address] [facility] [address] [place] [address] Heidy Daley MD [address] [place], [place] [phone] Outgoing mail Social History Tobacco Use Types Packs/Day Years [...] is your housing situation today? I have farhanmatti cevallos 04/28/[address] you [...] encounter Miscellaneous Notes * Telephone Encounter - Carol Ann Cabrales - 07/13/2024 10:24 AM EST Normal Pap letter sent on 07/13/2024. documented in this encounter Plan of Treatment Not on file documented as of this encounter Visit Diagnoses Not on filedocumented in this encounter Additional Health Concerns Assessment Noted Time PHQ-9 Depression Total Score: 10 024 11:20 AM EST documented as of this encounter Care Teams Order Processor Relationship Specialty Start Date End Date Heidy Daley MD [address] [place] [address] PCP - General Family Medicine 05/24/18 Timoteo Ramirez MD [address] [place] [address] [address] [place] [address] Orthopaedic Surgery 06/13/24 Chris Parada MD [address] [place] [address] [address] [place] [address] Obstetrics and Gynecology 06/27/24 Heidy Conklin, PharmD Endocrinology 04/19/24 documented as of this encounter
--- OUTSIDE RECORDS SUMMARY | 2024-07-27 07:42 | XMS_ITS | Encounter Summary ---
Author Organization [employer] [facility] Address [address] [place] [address] 7 [place] [address] Care Team Providers Care Artificial Stone Setter Name Role Phone Heidy Daley MD Primary Care Provider +1- [phone] Timoteo Rmairez MD Unavailable Chris Parada MD Unavailable Encounter Details Date Type Department Care Team (Latest Contact Info) Description 12/23/2020 Abstract [facility] CON[facility]S Dental, Provider, DDS Social History Tobacco [...] on filedocumented in this encounter Care Teams Artificial Stone Setter Relationship Specialty Start Date End Date Heidy Daley MD [address] [place] [address] PCP - General Family Medicine 05/24/18 Timoteo Ramirez MD [address] [place] [address] [address] [place] [address] Orthopaedic Surgery 06/13/24 Chris Parada MD [address] [place] [address] [address] [place] [address] Obstetrics and Gynecology 06/27/24 Heidy Conklin, PharmD Endocrinology 04/19/24 documented as of this encounter
--- OUTSIDE RECORDS SUMMARY | 2024-07-27 07:42 | XMS_ITS | Encounter Summary ---
Author Organization [employer] Address [address] [facility] 7t [place] [address] Care Team Providers Care Flavorer Name Role Phone Heidy Daley MD Primary Care Provider +1- [phone] Timoteo Ramirez MD Unavailable Chris Parada MD Unavailable Encounter Details Date Type Department Care Team (Late st Contact Info) Description 06/07/[address] [facility] MED[facility]INE [address] [place] [address] Heidy Daley MD [address] [place] [address] PCOS (polycystic ovarian syndrome); Diabetes mellitus without complication (CMS/HCC); Elevated prolactin level; Refusal of blood transfusions as patient is Cheondoism; Preventative health care Social History Tobacco Use [...] GENERAL ORDERABLES Final Result Performing Organization Address City/[facility]/ZIP Co de Phone Number [facility] [address] [place] [address] [phone] * Pap Smear (01/05/2018 12:00 AM EDT) Swab Heidy Daley MD LAB CYTOLOGY ORDERABLES Fi nal Result Performing Organization Address [facility]/ZIP Co de Phone Number [facility] [address] [place] [address] [phone] documented in this encounter Visit Diagnoses Diagnosis PCOS (polycystic ovarian syndrome) Polycystic ovaries Diabetes mellitus without complication (CMS/HCC) Type II or unspecified type diabetes mellitus without mention of complication, not stated as uncontrolled Elevated prolactin level Refusal of blood transfusions as patient is Cheondoism Refusal of treatment for reasons of restorationism or conscience Preventative health care Routine general medical examination at a health care facility documented in this encounter Care Teams Flavorer Relationship Specialty Start Date End Date Heidy Daley MD [address] [place] [address] PCP - General Family Medicine 05/24/18 Timoteo Ramirez MD [address] [place] [address] [address] [place] [address] Orthopaedic Surgery 06/13/24 Chris Parada MD [address] [place] [address] [address] [place] [address] Obstetrics and Gynecology 06/27/24 Heidy Conklin PharmD Endocrinology 04/19/24 documented as of this encounter
--- OUTSIDE RECORDS SUMMARY | 2024-07-27 07:42 | XMS_ITS | Encounter Summary ---
Author Organization [employer] Address [address] [facility] 7t [place] [address] Care Team Providers Care Decorator Consultant Name Role Phone Heidy Daley MD Primary Care Provider +1- [phone] Timoteo Ramirez MD Unavailable Chris Parada MD Unavailable Reason for Visit * Reason Onset Date Comments Referral 08/18/2022 Encounter Details Date Type Department Care Team (Late st Contact Info) Description 08/18/2022 Telephone [facility] [address] [place] [address] Heidy Daley MD [address] [place], [place] [phone] Referral Social History Tobacco Use Types Packs/Day [...] Pt states that she was referred to [facility] and shehas not had an appt with them for months now. Please contact pt at [phone] documented in this encounter Plan of Treatment Not on file documented as of this encounter Visit Diagnoses Not on filedocumented in this encounter Care Teams Decorator Consultant Relationship Specialty Start Date End Date Heidy Daley MD [address] [place] [address] PCP - General Family Medicine 05/24/18 Timoteo Ramirez MD [address] [place] [address] [address] [place] [address] Orthopaedic Surgery 06/13/24 Chris Parada MD [address] [place] [address] [address] [place] [address] Obstetrics and Gynecology 06/27/24 Heidy Conklin, PharmD Endocrinology 04/19/24 documented as of this encounter
--- OUTSIDE RECORDS SUMMARY | 2024-07-27 07:42 | XMS_ITS | Encounter Summary ---
Author Organization [employer] Address [address] [facility] 7t [place] [address] Care Team Providers Care Stone Belt Sander Name Role Phone Heidy Daley MD Primary Care Provider +1- [phone] Timoteo Ramirez MD Unavailable Chris Parada MD Unavailable Reason for Visit * Reason Onset Date Comments Appointment Request 06/16/2024 Encounter Details Date Type Department Care Team (Late st Contact Info) Description 06/16/2024 Telephone [facility] MEDICINE [address] [place], [place] [phone] Heidy Daley MD [address] [place], [place] [phone] Appointment Request Social History Tobacco Use Types [...] 4:23 PM EST Tc from Heidy in [facility] requesting that instead of mutual pt being seen once a year. That she should be seen once every 6 months for diabetes. (A1C was 6.3%) And heidy states that PCP should take care of pt diabetes moving forward. Please Contact Heidy: [phone] documented in this encounter Plan of Treatment Not on file documented as of this encounter Visit Diagnoses Not on filedocumented in this encounter Additional Health Concerns Assessment Noted Time PHQ-9 Depression Total Score: 10 024 11:20 AM EST documented as of this encounter Care Teams Stone Belt Sander Relationship Specialty Start Date End Date Heidy Daley MD [address] [place] [address] PCP - General Family Medicine 05/24/18 Timoteo Ramirez MD [address] [place] [address] Orthopaedic Surgery 06/13/24 Chris Parada MD [address] [place] [address] [address] [place] [address] Obstetrics and Gynecology 06/27/24 Heidy Conklin, PharmD Endocrinology 04/19/24 documented as of this encounter
--- OUTSIDE RECORDS SUMMARY | 2024-07-27 07:42 | XMS_ITS | Encounter Summary ---
Author Organization [employer] Address [address] [facility] [address] 7t [place] [address] Care Team Providers Care Government Employee Name Role Phone Heidy Daley MD Primary Care Provider +1- [phone] Timoteo Ramirez MD Unavailable Chris Parada MD Unavailable Encounter Details Date Type Department Care Team (Late st Contact Info) Description 06/28/2024 Orders Only [facility] [address] [place] [address] Heidy Daley MD [address] [place] [address] Atypical squamous cells of undetermined significance on cytologic smear of cervix (ASC-US) (Primary Dx); Chronic pain of both knees Social History Tobacco Use Types Packs/Day Years [...] CONTRAST RIGHT Routine 06/29/2024 6:00 PM EST HPV DNA, LOW/HIGH RISK Routine 06/27/2024 8:07 AM EST Atypical squamous cells of undetermined significance on cytologic smear of cervix (ASC-US) PAP SMEAR Routine 06/27/2024 8:07 AM EST Atypical squamous cells of undetermined significance on cytologic smear of cervix (ASC-US) documented in this encounter Results * MR Knee w/o Contrast Right (06/29/2024 6:00 PM EST) Anatomical Region Laterality Modality Magnetic Resonan ce 06/29/2024 6:0 0 PM EST Narrative 06/30/2024 7:48 AM EST ? [facility] ?[address] ?[place] [address] ? Magnetic Resonance Report ? Signed ? Patient: Capois Ferrera,Bren ?MR#: ?? [id number] ? : 1985 ?Acct:[id number] ? Age/Sex: 39 / F ?ADM Date: 02/06/25 ? Loc: HO.MRI ? Attending Dr: Timoteo Ramirez MD ? Ordering Physician: Timoteo Ramirez MD ?? Date of Service: 06/29/24 ?? Procedure(s): MR knee RT wo con ?? Accession Number(s): [id number] ? cc: Heidy Daley MD; Timoteo Ramirez MD ? EXAMINATION: MRI RIGHT KNEE WITHOUT CONTRAST ? HISTORY: S83.646A - Other tear of medial meniscus, current [...] DD/ 1800 ? TD/TT: 06/29/24 1830 ? Quality Eng: ? Procedure Note Hanane, Image - 06/30/2024 [place] [address] Magnetic Resonance Report Signed Patient: Jeet Mejia#: [id number] : 1985Acct:[id number] Age/Sex: 39 / FADM Date: 06/29/24 Loc: HO.MRI Attending Dr: Timoteo Ramirez MD Ordering Physician: Timoteo Ramirez MD Date of Service: 06/29/24 Procedure(s): MR knee RT wo con Accession Number(s): [id number] cc: Heidy Daley MD; Timoteo Ramirez MD [...] by: Yosi Bermudez MD 06/30/2024 07:45 AM EST Dictated By: Yosi Bermudez MD Signed By: <Electronically signed by Yosi Bermudez MD in OV> 06/30/24 0745 DD/ 1800 TD/TT: 06/29/24 1830 Quality Eng: [facility] External Provider IMG MRI PROCEDURES Final Result * HPV DNA, Low/High Risk (06/27/2024 8:07 AM EST) HPV High Risk Negative Negative [facility] HPV Genotype 16 Negative Negative [facility] HPV Genotype 18 Negative Negative [facility] Comment:HPV testing performe d at [facility] (IA#[id number]), [address] [place] [address].Testing for HPV was performed using the [employer] Round0system. The presence of HPV in the female [...] 8:07 AM EST 06/28/2024 9:15 AM EST us Generic External Data Provider LAB BLOOD ORDERAB LES Final Result [facility] [address] [place] [phone] * Pap Smear (06/27/2024 8:07 AM EST) 06/27/2024 8:07 AM EST 06/28/2024 9:15 AM EST Narrative [facility] - 07/06/2024 2:20 PM EST ----- ------- Name: Bren Mejia ?Age/Sex: 39/F ? : 1985 Unit#: [id number] ?? Attend Dr: Chris Parada MD ?Re06/27/24 ?Status: DEP REF ? Location: HO.LN ?Disch: ? ----- ------- SPEC : [id number] ? RECD: 06/28/24 ? STATUS: ??SOUT ? REQ NUM: [id number] ? DEANGELO: 06/27/24 ? SUBM DR: Chris [...] Copies To: ?? Heidy Daley MD ?? [facility] ?? [address] ?? [place] [address] ?? [phone] ?? Chris Parada MD ?? [facility] ?? [address] [facility] [address] ?? [place] [address] ?? [phone] ----- ------- Signed (signature on file) April Johnson 07/06/240 ? ----- ------- ? END OF REPORT ? us Generic External Data Provider LAB CYTOLOGY MASOUD RODRÍGUEZ Final Result Performing Organization Address City/State/[facility] Co de Phone Number [facility] [address] [facility] [place] [address] [phone] documented in this encounter Visit Diagnoses Diagnosis Atypical squamous cells of undetermined significance on cytologic smear of cervix (ASC-US)- Primary Chronic pain of both knees documented in this encounter Additional Health Concerns Assessment Noted Time PHQ-9 Depression Total Score: 10 024 11:20 AM EST documented as of this encounter Care Teams Government Employee Relationship Specialty Start Date End Date Heidy Daley MD [address] [place] [address] [place] [address] PCP - General Family Medicine 05/24/18 Timoteo Ramirez MD [address] [place] [address] [address] [place] [address] Orthopaedic Surgery 06/13/24 Chris Parada MD [address] [place] [address] [address] [facility] [address] Obstetrics and Gynecology 06/27/24 Heidy Conklin, PharmD Endocrinology 04/19/24 documented as of this encounter
--- OUTSIDE RECORDS SUMMARY | 2024-07-27 07:42 | XMS_ITS | Encounter Summary ---
Author Organization [employer] [facility] Address [address] [place] [address] 7 [place] [address] Care Team Providers Care Blood Donor Recruiter Supervisor Name Role Phone Heidy Daley MD Primary Care Provider +1- [phone] Timoteo Ramirez MD Unavailable Chris Parada MD Unavailable Encounter Details Date Type Department Care Team (Latest Contact Info) Description 02/07/[address] [facility] CONVERSIONS Dental, Provider, DDS Social History [...] on filedocumented in this encounter Care Teams Blood Donor Recruiter Supervisor Relationship Specialty Start Date End Date Heidy Daley MD [address] [place] [address] PCP - General Family Medicine 05/24/18 Timoteo Ramirez MD [address] [place] [address] [address] [place] [address] Orthopaedic Surgery 06/13/24 Chris Parada MD [address] [place] [address] [address] [place] [address] Obstetrics and Gynecology 06/27/24 Heidy Conklin, PharmD Endocrinology 04/19/24 documented as of this encounter
--- NOTE | 2024-07-27 07:46 | MHC.OFFVIS ---
Intake Visit Reasons: MRI REVIEW RIGHT KNEE Intake Note: Tl is a 39 year old female who presents with complaints of intermittent discomfort along the anterior aspects of both of her knees. She describes her knee pains as achy in nature. She has been to physical therapy for her back pain but not her knee pains. She denies any locking or giving way. She does not want a cortisone injection because it affects her diabetes. Allergies No Known Allergies [No Known Allergies*] Allergy (Verified 07/27/24 07:51) [facility] Medical History ASCUS with positive high risk HPV cervical Chronic back pain Pituitary mass PCOS (polycystic ovarian syndrome) Fibromyalgia Diabetes Social History Patient Tobacco Use Status: Never used Tobacco Physical Exam Const Other: Well-nourished well-developed very friendly female awake alert and oriented x3 in no acute distress Extrem Other: Bilateral knee examination shows minimal effusions, minimal crepitus with range of motion, no joint line tenderness, negative Estefani's test, tenderness over her patellar tendons Results Reviewed Results Reviewed: MRI of the patient's right knee shows mild diffuse degenerative changes, no meniscus or ligamentous injury Assessment & Plan Assessment & Plan (1) Bilateral knee pain: Code(s): M25.561 - Pain in right knee; M25.562 - Pain in left knee Category: Medical Plan Bren presents with bilateral knee pains most likely due to patellar tendinitis. I did give the patient a prescription to go to formal physical therapy. She will continue with her home exercise program as well. She will follow up with me on an as-needed basis should her symptoms not plateau at unacceptable level over the months. Feel free to call me at any time should questions regarding her orthopedic management arise. I spent 20 minutes in reviewing the patient's records and imaging studies, seeing the patient and documenting in the medical record. Orders: Orders PT Evaluation and Treatment Today M25.561 - Pain in right knee, M25.562 - Pain in left knee Coding Level of Care Code Est Pt Level 3 (85475) Complex EM visit Add On G2211 Diagnoses Bilateral knee pain M25.561; M25.562
== END 2024-07-27 07:52 | disposition home or self-care (01) ==
PROVIDERS: PCP Family Medicine; Visit Provider Orthopaedic Surgery
DX: M25.561 Pain in right knee (principal); M25.562 Pain in left knee
CPT/HCPCS: 99213

== ENCOUNTER 2025-05-03 10:55 | Outpatient (REF) | payer OTHER, SELFPAY ==
[2025-05-03 14:01] LABS: Hematocrit 37.8 % (37.0-47.0); Hemoglobin 12.4 g/dl (12.0-16.0); Mean Corpuscular HGB Conc 32.8 g/dl (31.0-35.0); Mean Corpuscular Hemoglobin 27.7 pg (27.0-33.0); Mean Corpuscular Volume 84.4 fL (80.0-98.0); NRBC Abs Auto 0.000 X10*3/uL (0.0-0.012); NRBC Pct Auto 0.0 /100WBC (0.0-0.2); Platelet Count 330 X10*3/uL (160-400); Red Blood Count 4.48 X10*6/uL (4.20-5.50); White Blood Count 7.5 X10*3/uL (4.8-10.8)
[2025-05-03 14:39] LABS: Ferritin 29 ng/mL (10-122)
[2025-05-03 14:50] LABS: Folate 6.8 ng/mL (> or = 4.0); Vitamin B12 466 pg/mL (200-900)
== END 2025-05-03 10:56 | disposition home or self-care (01) ==
LOC: HO.HHCL 10:55
PROVIDERS: PCP Family Medicine; Visit Provider Family Medicine
DX: R53.83 Other fatigue (principal); E55.9 Vitamin D deficiency, unspecified; L30.9 Dermatitis, unspecified
CPT/HCPCS: 36415; 82306; 82607; 82728; 82746; 84443; 85027